=== PATIENT | female | born 1950 | race Caucasian/White ===

== ENCOUNTER → 2017-06-07 | Outpatient (CLI) | payer MEDICARE, MEDICAID ==
[~2017-06-07] MED LIST: ADVAIR HFA115 MCG/21 INH; AMIODARONE HCL100 MG PO; ASPIRIN81 M2 PO; AYR SALINE NASA14 GM TOP; CARDIZEM CD240 MG PO; CLOTRIMAZOLE 1%15 G1 TOP; DUONEB 2.5-0.5 M3 ML INH; ELIQUIS2.5 MG PO; HUMALOG100 UNIT/1 SUBQ; IRON325 PO; LANOXIN 0.120.125 M2 PO; LANTUS100 UNIT/M SUBQ; LASIX 40 MG TAB40 M2 PO; LEVALBUTER1.25 MG/0. INH; LEVOTHYROXIN0.125 M1 PO; LEVOTHYROXINE 0.15MG PO; LISINOPRIL2.5 MG PO; POTASSIUM20 PO; PREMARIN VAGI42.5 G1 TOP; TYLENOL325 MG PO; VASOTEC10 MG PO; VENTOLIN HFA 1818 GM INH; VITAMIN D1000 UNI1 PO; ZETIA10 MG PO
[2017-06-07 15:18] LABS: ALBUMIN 3.4 g/dL (3.4-5.0); CALCIUM 8.9 mg/dL (8.5-10.1); CREATININE 1.6 mg/dL (0.6-1.3); POTASSIUM 4.1 mmol/L (3.5-5.1); TOTAL BILIRUBIN 0.2 mg/dL (<0.1-1.0); TOTAL PROTEIN 8.1 g/dL (6.4-8.2)
== END ==
LOC: M.RAD 14:28
PROVIDERS: Nurse Practitioner
DX: I50.32 Chronic diastolic (congestive) heart failure (principal); I51.7 Cardiomegaly; I48.3 Typical atrial flutter; E03.9 Hypothyroidism, unspecified

== ENCOUNTER → 2017-06-20 | Outpatient (CLI) | payer MEDICARE, MEDICAID ==
[2017-06-20 13:49] LABS: CALCIUM 9.3 mg/dL (8.5-10.1); CREATININE 1.5 mg/dL (0.6-1.3)
== END ==
LOC: M.RAD 13:12
PROVIDERS: Nurse Practitioner
DX: I51.7 Cardiomegaly (principal); I12.9 Hypertensive chronic kidney disease with stage 1 through stage 4 chronic kidney disease, or unspecified chronic kidney disease; E11.22 Type 2 diabetes mellitus with diabetic chronic kidney disease; N18.9 Chronic kidney disease, unspecified; E03.9 Hypothyroidism, unspecified; E78.00 Pure hypercholesterolemia, unspecified

== ENCOUNTER 2018-02-07 16:13 | Inpatient (IN) | payer MEDICARE, MEDICAID ==
[~2018-02-07] VITALS: Ht 152.4 cm; Wt 115.7 kg
[2018-02-07 16:25] VITALS: BP 113/53
[2018-02-07 17:28] LABS: ABSOLUTE EOSINOPHILS 0.1 thou/uL (0.0-0.7); ABSOLUTE LYMPHOCYTES 1.4 thou/uL (0.8-5.3); ABSOLUTE MONOCYTES 0.8 thou/uL (0.0-1.2); ABSOLUTE NEUTROPHILS 6.4 thou/uL (1.6-8.1); BASOPHILS 0.5 %; EOSINOPHILS 1.2 %; HEMATOCRIT 39.5 % (37.0-47.0); HEMOGLOBIN 12.6 gm/dL (12.0-15.0); LYMPHOCYTES 15.7 %; MCH 31.6 pg (26.0-34.0); MCHC 31.8 g/dL (28.0-37.0); MCV 99.5 fL (80.0-100.0); MONOCYTES 8.9 %; MPV 8.2 fl. (7.2-11.1); NUCLEATED RBCS 0 /100WBC; PLATELET COUNT* 283 thou/uL (150-400); POLYS 73.7 %; RBC 3.97 mil/uL (4.20-5.00); RDW-CV 14.6 % (10.5-14.5); WBC 8.7 thou/uL (4.0-11.0)
[2018-02-07 17:46] LABS: APTT 29.1 Seconds (25.0-31.3); PROTIME 10.5 Seconds (9.20-11.50)
[2018-02-07 17:48] LABS: ANION GAP 7 mmol/L (7-16); BUN 47 mg/dL (7-18); CALCIUM 9.9 mg/dL (8.5-10.1); CHLORIDE 96 mmol/L (98-107); CO2 34 mmol/L (21-32); CREATININE 1.8 mg/dL (0.6-1.3); GLUCOSE 121 mg/dL (70-99); POTASSIUM 4.2 mmol/L (3.5-5.1); SODIUM 137 mmol/L (136-145)
[2018-02-07 17:59] LABS: ALBUMIN 3.3 g/dL (3.4-5.0); ALKALINE PHOSPHATASE 109 U/L (46-116); NT-PRO BRAIN NAT PEPTIDE 1408 pg/mL (<300); SGOT 16 U/L (15-37); SGPT 17 U/L (30-65); TOTAL BILIRUBIN 0.2 mg/dL (<0.1-1.0); TOTAL PROTEIN 8.3 g/dL (6.4-8.2); TROPONIN-I LEVEL <0.06 ng/mL (<0.06)
[2018-02-07 20:10] VITALS: BP 122/66
[2018-02-07 20:25] VITALS: BP 99/62
[2018-02-07 20:30] VITALS: BP 99/62
[2018-02-07 22:06] VITALS: BP 97/57
[2018-02-08] VITALS: BP 115/56
[2018-02-08 04:00] VITALS: BP 145/67
[2018-02-08 05:37] LABS: HEMATOCRIT 38.2 % (37.0-47.0); HEMOGLOBIN 11.9 gm/dL (12.0-15.0); MCH 31.4 pg (26.0-34.0); MCHC 31.3 g/dL (28.0-37.0); MCV 100.2 fL (80.0-100.0); MPV 8.1 fl. (7.2-11.1); RBC 3.81 mil/uL (4.20-5.00); WBC 8.6 thou/uL (4.0-11.0)
--- NOTE | 2018-02-08 05:39 | NUR ---
Pt A/O x 4, on O2 2L NC. Pt sleeps only in recliner due to intolerance of sleeping in bed. On ABX therapy and continuous IVF infusion. VSS. C/o BLE pain only upon mobility. No apparent distress noted at this time. Will continue to monitor.
[2018-02-08 05:43] LABS: CALCIUM 9.7 mg/dL (8.5-10.1); MAGNESIUM 2.5 mg/dL (1.8-2.4)
[2018-02-08 05:49] LABS: POTASSIUM 5.6 mmol/L (3.5-5.1)
[2018-02-08 08:00] VITALS: BP 110/75
--- NOTE | 2018-02-08 08:00 | NUR ---
pt sitting up in chair in room, appears alert o x 4, denies chest pain,denies SOB at rest, o2 at 2l per NC, sate 90%m BLE reddened , discolored, dx BLE cellulitis
[2018-02-08 12:28] VITALS: BP 115/78
--- NOTE | 2018-02-08 16:04 | NUR ---
MET WITH PT TO DISCUSS HOME SITUATION/DC PLANNING PT LIVES ALONE. HAS IN HOME CARE GIVERS M-F 9-2 THRU [facility]. SHE IS TRYING TO GET THEM INCREASED. SHE HAS HAD HH WITH [facility] IN PAST AND WOULD LIKE TO USE THEM AGAIN. PT USES FURNITURE TO GET AROUND IN [place]. DENIES HAVING A WALKER BUT WOULD LIKE ONE WITH A SEAT. WILL HAVE TO CHECK ON A WEEKDAY FOR COVERAGE. SHE HAS O2 THRU [facility] AND ELECTRIC W/C. PT CAN STILL DRIVE HERSELF TO APPTS, CG ASSISTS HER INTO THE CAR. PT IS ABLE TO DO SOME ADLS WITH ASSIST. CG DOES COOKING, CLEANING, LAUNDRY, SHOPPING. SON/ALEX IS DPOA, LIVES IN [place] BUT COMING TO VISIT THRU THE 1ST. PT HASN'T BEEN TO SNF AND PREFERS NOT TO GO. WILL FOLLOW
--- NOTE | 2018-02-08 18:10 | NUR ---
pt has sat up in chair most of day, remains alert o x 4, denies chest pain, denies SOB, with activity, on o2 at 2l per nc. CT chest ordered, concern over pulm nodules, Pt became claustraphobic, was unable to complete, BLE reddened DX CELLULITIS, feet warm, ppp faint, were dopplered in ER prior to admission, Vascular surgury has been consulted. Reports dakota pain relief with po lortab
[2018-02-08 20:00] VITALS: BP 109/74
[2018-02-09] VITALS: BP 123/83
[2018-02-09 04:00] VITALS: BP 106/70
[2018-02-09 05:14] LABS: HEMATOCRIT 38.4 % (37.0-47.0); MCH 31.6 pg (26.0-34.0); MCHC 31.3 g/dL (28.0-37.0); MCV 101.1 fL (80.0-100.0); MPV 8.2 fl. (7.2-11.1); RBC 3.79 mil/uL (4.20-5.00); RDW-CV 14.8 % (10.5-14.5)
[2018-02-09 05:23] LABS: CALCIUM 9.3 mg/dL (8.5-10.1); CREATININE 1.8 mg/dL (0.6-1.3); MAGNESIUM 2.5 mg/dL (1.8-2.4); POTASSIUM 4.9 mmol/L (3.5-5.1)
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
[2018-02-09 08:00] VITALS: BP 138/90
--- NOTE | 2018-02-09 11:07 | EKG ---
[place] [address] ELECTROCARDIOGRAM REPORT Name: DENIZ LÓPEZ Room: [address] ADM IN M.R.#: [id number] Admission: 02/07/18 Attend Phys: Parminder Mccann MD Discharge: Date of : 48 Report #: [id number] THIS REPORT FOR: //name// [facility] [place] ED Test Date: 2018-02-07 Test Time: 16:54:03 Pat Name: DENIZ LÓPEZ Department: Room: [facility] Gender: F Relations Liaison: Kelly ALMEIDA : 1950 Requested By: Bekah Billingsley Order Number: [id number] MD: Reagan Adams Measurements Intervals [place] Rate: 121 P: [place]: QRS: 128 QRSD: 131 T: 30 QT: 404 QTc: 574 Interpretive Statements Atrial flutter with 2:1 block RBBB and LPFB Inferior infarct, old possible Baseline wander in lead(s) V1 Compared to ECG 10/31/2016 08:06:08 Atrial flutter persists with more rapid responwe Left posterior fascicular block now present Myocardial infarct finding still present Electronically Signed On 02-09-2018 11:06:49 MORNING CAREGIVER by Reagan Adams [email or web address] <ELECTRONICALLY SIGNED> By: Reagan Adams MD, [facility] 02/09/18 1106 [id number] [id number] Reagan Adams MD, [facility] /EPI
[2018-02-09 11:50] VITALS: BP 128/62
[2018-02-09 15:18] VITALS: BP 108/77
[2018-02-09 20:00] VITALS: BP 141/68
[2018-02-10 04:00] VITALS: BP 128/71
[2018-02-10 05:39] LABS: HEMATOCRIT 36.8 % (37.0-47.0); HEMOGLOBIN 11.4 gm/dL (12.0-15.0); MCH 30.7 pg (26.0-34.0); MCHC 30.8 g/dL (28.0-37.0); MCV 99.7 fL (80.0-100.0); MPV 8.3 fl. (7.2-11.1); RBC 3.69 mil/uL (4.20-5.00); RDW-CV 14.5 % (10.5-14.5); WBC 11.5 thou/uL (4.0-11.0)
[2018-02-10 06:03] LABS: CALCIUM 9.7 mg/dL (8.5-10.1); CREATININE 1.7 mg/dL (0.6-1.3); POTASSIUM 5.1 mmol/L (3.5-5.1)
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
--- NOTE | 2018-02-10 07:45 | NUR ---
ASSUMED CARE OF PT ASSESSED AND DOCUMENTED. PT IS ON CARDIAC MONITER TRACING ST HR 115. PT IS A&O WITH NO C/O PAIN. VSS WNL. PT IS AFEBRILE. SHE IS ON 2L OF O2 WITH NOTED WHEEZING IN ALL LOBES. PT SAT 88 TO 89 ON 02 AND REFUSES TO HAVE IT RAISED. PT'S SPUTUM WAS BLOOD TINGED. PT HAS SWELLING AND CELLULITUS IN BLE'S. SHE IS ANXIOUS AND STATES SHE HAS CLAUSTRAPHOBIA. SHE ALSO DOES NOT LIKE DARK COLORED SCRUBS OR HER CURTAIN CLOSED. BED IS IN LOW POSITION CALL LIGHT IS IN REACH. WM.
[2018-02-10 08:00] VITALS: BP 139/71
--- NOTE | 2018-02-10 10:24 | NUR ---
PT REFUSED ABG STATING THEY HURT TOO BAD AND HER ANXIETY LEVEL IS TOO HIGH
--- NOTE | 2018-02-10 12:02 | NUR ---
MIKY CARDIAC NURSE ASKED THAT PT BE ON LOW SODIUM DIET SO SHE CAN HAVE MS DASH.
[2018-02-10 12:12] VITALS: BP 116/82
--- NOTE | 2018-02-10 13:33 | NUR ---
WOUND NURSE: PATIENT SEEN TO ADDRESS SUPERFICIAL SKIN LESIONS ON THE LEFT CALF. PRESENTS WITH SHALLOW EROSIONS AND PEELING SKIN, WEEPING SEROUS DRAINAGE. THERE IS RUBOR, WARMTH, AND SWELLING. PATIENT RESISTANT TO RECOMMENDED CARE, BUT FINALLY AGREED TO WOUND CARE TO THE AFFECTED LEG. CLEANSED WITH SOAP AND WATER, RINSED WITH WATER, THEN PATTED DRY. APPLIED LOTION TO INTACT SKIN TOES TO KNEE, APPLIED XEROFORM GAUZE UNDER ABD TO SHALLOW EROSIONS IN TH DISTAL CALF AREA, THEN COVERED WITH ABD'S, THEN WRAPPED WITH KERLEX ROLL GAUZE UNDER LOOSE MU WRAP. PATIENT REFUSION ANY COMPRESSION OR ELEVATION IN BED. PATIENT WAS INFORMED OF POTENTIAL CONSEQUENCES OF REFUSAL TO FOLLOW THE PLAN OF CARE. PATIENT ARGUES SHE HAS SEVERE ANXIETY AND CAN'T TOLERATE HAVING LEGS COMPRESSED.
--- NOTE | 2018-02-10 14:26 | NUR ---
Nutrition: Consult received for "pt is diabetic." Diet was changed from CHO controlled to low Na. Labs: Na 135, BG 312, alb 3.3, BUN 52, cr 1.7. Wt is stable at 255#. Pt has leg wounds. Is very anxious and fearful. Altered nutrition-related lab values R/T BG AEB labs above. RD will add a CHO count to the low Na diet. Mild risk.
[2018-02-10 15:42] VITALS: BP 120/58
--- NOTE | 2018-02-10 17:18 | NUR ---
PT HAS SET IN BEDSIDE CHAIR THIS SHIFT. SHE REFUSED WOUND CARE, THIS NURSE AND CHARGE BOTH EDUCATED PT. SHE DID ALLOW WOUND CARE TO TREAT HER L LEG. PT REFUSES ANYTHING FOR ANXIETY. SHE WAS UPSET WITH CARDIO NURSE WHEN SHE EDUCATED PT ON FLUIDS. SON IS AT BEDSIDE.
[2018-02-11 00:44] VITALS: BP 126/66
--- NOTE | 2018-02-11 03:21 | NUR ---
RECIEVED REPORT AND ASSUMED CARE AT 1900. PANEL SEWER IN PLACE. VITAL SIGNS STABLE. ON NC OXYGEN. PT HAS PAIN IN HER LEGS THAT COME AND GO BUT NONE AT THIS TIME, REST HELPS MANAGE PAIN. PT UP WITH STANDBY ASSIST. ASSESSMENT COMPLETED, DISCUSSED PLAN OF CARE, PT UNDERSTANDS. PT SLEEPS IN CHAIR NOT IN BED DUE TO BREATHING. CALL LIGHT WITHIN REACH. HOURLY ROUNDING DONE AND ALL NEEDS MET. NURSING WILL CONTINUE TO MONITOR.
[2018-02-11 04:00] VITALS: BP 122/69
--- NOTE | 2018-02-11 07:15 | NUR ---
ASSUMED CARE OF PT ASSESSED AND DOCUMENTED. PT IS ON CARDIAC MONITER TRACING ST HR 121. SHE IS A&O WITH NO C/O PAIN. SHE CONT ON 3L OF 02 SAT IS 89%. PT REFUSES TO HAVE 02 RAISED. VSS WNL. PT IS AFEBRILE. LUNGS ARE CLEAR. BED IS IN LOW POSITION CALL LIGHT IS IN REACH. WM.
[2018-02-11 08:00] VITALS: BP 125/77
--- NOTE | 2018-02-11 08:23 | CON ---
[address] [address] CONSULTATION Name: FLORENTINO LÓPEZNIE Room: [address] ADM IN M.R.#: [id number] Admission: 02/07/18 Attend Phys: Parminder Mccann MD Discharge: Date of : 48 Report #: [id number] THIS REPORT FOR: //name// CC: Linda Mccann DATE OF SERVICE: 02/09/2018 ATTENDING PHYSICIAN: Tomi Roberts MD REASON FOR EVALUATION: Bilateral lower extremity inflammatory eruption, suspected component of cellulitis. HISTORY OF PRESENT ILLNESS: Chart reviewed, patient examined. This is a 67-year-old who has got known severe COPD, O2 requiring, difficulty getting around, although she has been able; however, over the course of last few days prior to admission, became increasingly difficult with pain associated with the left lower extremity. She has known venous stasis insufficiency with dermatitis. The pain, however, made it unbearable to bear weight and walk and evaluation included a chest x-ray raised question of a pulmonary mass versus local pneumonitis that was notable was not present in 06/2017. Lactic acid was normal. Arterial Dopplers showed evidence of some occlusive disease with monophasic blood flow throughout the left lower extremity, no evidence of deep venous thrombosis. Blood cultures are sterile thus far. Empirically started on antimicrobials with ceftriaxone and vancomycin. ALLERGIES: STATINS, CODEINE, PENICILLIN. MEDICATIONS: Include levalbuterol, hydrocodone, ceftriaxone, amiodarone, ferrous sulfate, ezetimibe, budesonide, levothyroxine, vancomycin, diltiazem, apixaban, cholecalciferol, methylprednisolone, insulin glargine, furosemide. PAST MEDICAL HISTORY: Above-noted diabetes mellitus, O2 requiring COPD, atrial fibrillation, hypertension, asthma, chronic venous stasis insufficiency with dermatitis, morbid obesity. SOCIAL HISTORY: Former smoker. No ethanol, no illicit drug use. FAMILY HISTORY: Noncontributory. REVIEW OF SYSTEMS: Denies any significant gastrointestinal-related complaints; otherwise, unremarkable 10-point review of systems from above. PHYSICAL EXAMINATION: GENERAL: She appears chronically ill, undernourished, is pleasant, cooperative. VITAL SIGNS: Temperature 97.3, pulse 110, respirations 20, [place] [address] CONSULTATION Name: DENIZ LÓPEZ Room: [address]#: [id number] Admission: 02/07/18 Attend Phys: Parminder Mccann MD Discharge: Date of : 49 Report #: [id number] 128/62. SKIN: Warm. Multiple areas of contusion, erythrodermic type eruption, lower extremities below the knees. Superficial ulcer on the lateral aspect of the left lower extremity. HEENT: Extraocular muscles intact, has nasal cannula oxygen in place. NECK: Supple. LUNGS: Diminished overall, scattered crackles, some wheezes. HEART: Regular, tachycardic. I do not appreciate any murmur. ABDOMEN: Obese, soft. No peritoneal signs, no particular tenderness. GENITOURINARY: Deferred. RECTAL: Deferred. LABORATORY DATA: Initial CBC: White count of 8.7, H and H 12.6 and 39.5, platelets of 283. Chest x-ray as described above, a left mid lung mass like opacity measuring 9 cm. Lactic acid of 1.2. Electrolytes: Sodium 137, potassium 4.2, chloride 96, bicarbonate is 34, BUN and creatinine 47 and 1.8, albumin 3.3, total protein of 8.3, estimated GFR of 28. Arterial and venous Dopplers as described above. Blood cultures sterile as above. ASSESSMENT: Bilateral lower extremity inflammatory eruption, certainly has underlying venous stasis insufficiency, dermatitis. There was an increase in pain, in particular on the right there is some breakdown with drainage as well. I think this is likely a secondary infection. We will continue the empiric therapy. Vancomycin should give adequate staph, strep coverage. Secondly, a question of pneumonitis. She is so tenuous to begin with, noted Pulmonary is following. I do not think it is likely she will be able to expectorate sputum. We will discuss with Dr. Jj whether CT imaging of the chest would be helpful. I do not think she would be a high risk candidate for any sort of invasive procedure at this point, see if she does clinically limb elevation is not feasible from her standpoint. Had tried compression in the past, which she did not tolerate can do to improve her level of pain. <ELECTRONICALLY SIGNED> By: Rakesh Frias MD 02/11/18 0823 1214 [id number] Frias MD /nt
[2018-02-11 12:00] VITALS: BP 120/77
[2018-02-11 13:09] LABS: CALCIUM 10.1 mg/dL (8.5-10.1); CREATININE 1.8 mg/dL (0.6-1.3); MAGNESIUM 2.4 mg/dL (1.8-2.4); POTASSIUM 4.5 mmol/L (3.5-5.1)
[2018-02-11 16:00] VITALS: BP 115/74
--- NOTE | 2018-02-11 17:57 | NUR ---
EDUCATION GIVEN ON DEMAND. HOURLY ROUNDING COMPLETE. PT HAS HAD NO C/O PAIN OR DISCOMFORT. CONT TO SIT IN BEDSIDE CHAIR.
[2018-02-11 20:00] VITALS: BP 129/73
[2018-02-12] VITALS (7 sets, daily range): BP systolic 106–139; BP diastolic 62–74
--- NOTE | 2018-02-12 02:01 | NUR ---
ASSUMED CARE OF PATIENT AT 1900. VSS, AFEBRILE. PATIENT IN CHAIR. HIGHLY ANXIOUS AND EMOTIONAL. BLOOD SUGAR AT HS CHECK WAS 79 AND SHE FELT THIS WAS TOO LOW. EDUCATION GIVEN ABOUT NORMAL RANGES. STILL REQUESTING JUICE AND PUDDING. UP TO BSC TO VOID. VERY SHAKY BUT LIKES TO BE INDEPENDENT. PROGRESSING SLOWLY TOWARDS POC GOALS.
[2018-02-12 05:26] LABS: HEMATOCRIT 40.2 % (37.0-47.0); HEMOGLOBIN 12.7 gm/dL (12.0-15.0); MCH 31.1 pg (26.0-34.0); MCHC 31.5 g/dL (28.0-37.0); MCV 98.6 fL (80.0-100.0); MPV 7.9 fl. (7.2-11.1); RBC 4.07 mil/uL (4.20-5.00); RDW-CV 15.1 % (10.5-14.5); WBC 12.3 thou/uL (4.0-11.0)
[2018-02-12 05:57] LABS: CALCIUM 9.8 mg/dL (8.5-10.1); CREATININE 1.8 mg/dL (0.6-1.3); MAGNESIUM 2.5 mg/dL (1.8-2.4); POTASSIUM 5.1 mmol/L (3.5-5.1)
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
--- NOTE | 2018-02-12 18:17 | NUR ---
PT VERY ANXIOUS ABOUT MANY THINGS. PT RELUCTANTLY AGREED TO CT AND WAS GIVEN ATIVAN PER ORDER. PT ABLE TO COMPLETE CT WITH REPEATED REASSURANCES AND ENCOURAGEMENT. PT RESPIRATIONS EVEN AND UNLABORED AT REST, BECOMES SIGNIFICANTLY SOA WITH ACTIVITY. PT REFUSES INCREASE IN O2 ABOVE 2L DESPITE SAT 87-89 MOST OF DAY. PT ABLE TO MAKE NEEDS KNOWN, CALL LIGHT IN REACH.
[2018-02-13] VITALS: BP 109/50
--- NOTE | 2018-02-13 03:05 | NUR ---
PT ASSESSMENT COMPLETE, TRACING ST ON MONITOR. PT IS VERY ANXIOUS BUT REFUSES ANY MEDICATIONS ORDERED FOR ANXIETY. PT EDUCATED ON RELAXATION TECHNIQUES, COMMUNICATES UNDERSTANDING. FALL PRECAUTIONS IN PLACE. HOURLY ROUNDING FOR SAFETY. CLWR.
[2018-02-13 04:59] VITALS: BP 120/71
[2018-02-13 05:03] LABS: HEMATOCRIT 40.5 % (37.0-47.0); HEMOGLOBIN 12.7 gm/dL (12.0-15.0); MCH 31.1 pg (26.0-34.0); MCHC 31.4 g/dL (28.0-37.0); MCV 99.1 fL (80.0-100.0); RBC 4.09 mil/uL (4.20-5.00); RDW-CV 14.6 % (10.5-14.5)
--- NOTE | 2018-02-13 05:06 | NUR ---
PT SLEPT INTERMITTENTLY THIS SHIFT. PT HAS HAD SEVERAL EPISODES OF SEVERE ANXIETY. PT REMAINS ST ON MONITOR. NO OTHER CONCERNS AT THIS TIME. FALL PRECAUTIONS IN PLACE. CLWR.
[2018-02-13 05:51] LABS: CALCIUM 9.6 mg/dL (8.5-10.1); CREATININE 1.8 mg/dL (0.6-1.3); MAGNESIUM 2.7 mg/dL (1.8-2.4); POTASSIUM 5.3 mmol/L (3.5-5.1)
[2018-02-13 07:50] VITALS: BP 107/73
[2018-02-13 11:30] VITALS: BP 123/74
--- NOTE | 2018-02-13 14:44 | 2DMMODE ---
[place] [address] 2 D/M-MODE ECHOCARDIOGRAM Name: DENIZ LÓPEZ Room: [address] IN [facility]#: [id number] Admission: 02/07/18 Attend Phys: Parminder Mccann, Discharge: Date of : 48 Date of Service: 02/13/18 1444 Report #: [id number] THIS REPORT FOR: //name// APPROVED REPORT Study performed: 02/12/2018 16:28:04 EXAM: Comprehensive 2D, Doppler, and color-flow Echocardiogram Patient Location: In-Patient Room #: [facility] Status: routine BSA: 2.12 HR: 120 bpm BP: 116/74 mmHg Rhythm: NSR Other Information Study Quality: Good Indications Dyspnea 2D Dimensions IVSd: 12.67 (7-11mm) LVOT Diam: 20.43 (18-24mm) LVDd: 38.90 mm PWd: 11.49 (7-11mm) Ascending Ao: 29.95 (22-36mm) LVDs: 28.68 (25-40mm) Aortic Root: 33.63 mm Volumes Left Atrial Volume (Systole) LA ESV Index: 34.30 mL/m2 Aortic Valve AoV Peak Nikolay.: 1.30 m/s AO Peak Gr.: 6.71 mmHg LVOT Max P.30 mmHg AO Mean Gr.: 3.99 mmHg LVOT Mean P.64 mmHg LVOT Max V: 1.04 m/s AO V2 VTI: 17.97 cm LVOT Mean V: 0.57 m/s BEBETO (VTI): 2.72 cm2 LVOT V1 VTI: 14.89 cm TDI Lateral E' Nikolay.: 0.13 m/[place] [address] 2 D/M-MODE ECHOCARDIOGRAM Name: DENIZ LÓPEZ Room: [address] IN M.R.#: [id number] Admission: 02/07/18 Attend Phys: Parminder Mccann, Discharge: Date of : 48 Date of Service: 02/13/18 1444 Report #: [id number] PV Peak Nikolay.: 0.83 m/s PV Peak Gr.: 2.74 mmHg Left Ventricle The left ventricle is normal size. There is normal LV segmental wall motion. Mild concentric left ventricular hypertrophy. Left ventricular systolic function is normal. The left ventricular ejection fraction is within the normal range. LVEF is 55-60%. The left ventricular diastolic function is normal. Right Ventricle The right ventricle is normal size. The right ventricular systolic function is normal. Atria Left atrium is mildly dilated. The right atrium size is normal. Aortic Valve The Aortic valve is sclerotic. No aortic regurgitation is present. There is no aortic valvular stenosis. Mitral Valve There is mitral annular calcification. There is no mitral valve regurgitation noted. No evidence of mitral valve stenosis. Tricuspid Valve The tricuspid valve is normal in structure. Trace tricuspid regurgitation. Pulmonic Valve Pulmonic valve is not well visualized. There is no pulmonic valvular regurgitation. Great Vessels The aortic root is normal in size. IVC is normal in size and collapses >50% with inspiration. Pericardium There is no pericardial effusion. <Conclusion> Mild concentric left ventricular hypertrophy. LVEF is 55-60%. [place] [address] 2 D/M-MODE ECHOCARDIOGRAM Name: MARIBELDENIZ Room: [address] IN .R.#: [id number] Admission: 02/07/18 Attend Phys: Parminder Mccann, Discharge: Date of : 48 Date of Service: 02/13/18 1444 Report #: [id number] The Aortic valve is sclerotic. Left atrium is mildly dilated. <ELECTRONICALLY SIGNED> By: Lloyd Christiansen MD, [facility] 02/13/18 1444 1444 1444 Lloyd Christiansen MD, FACC /INF
[2018-02-13 15:22] VITALS: BP 124/65
--- NOTE | 2018-02-13 19:00 | NUR ---
PT AOX4 THIS SHIFT, PT IS IDDM AND TOLERATING DIET AT THIS TIME. PT VERY ANXIOUS AND CAN BE TACHY INTO THE HIGH 200'S THAT IS NON-SUSTAINED. PT HAS HX OF AFIB, BUT HAS BEEN ST THIS SHIFT MAJORITY OF THE TIME HAS BEEN IN THE LOW 100'S TO 120'S. PT IS VERY PARTICULAR AND WANTS THINGS DONE A VERY SPECIFIC WAY. PT HAD DIFFICULT DX AND IS OFF BLOOD THINNERS UNTIL FURTHER NOTICE DUE TO NEED FOR BIOPSY. REDRESSED WOUNDS AND CLEANED THEM WELL. MELISSA AREA IS BLEEDING AND PT USES ESTROGEN CREAM, WILL NOT ALLOW IT TO LEAVE ROOM FOR PHARMACY VERIFICATION AND SHE USED IT AT THE END OF THE SHIFT TO STOP THE BLEEDING WITHOUT THIS RN KNOWING. PT ON 2L O2 PER NC BUT WOULD POSSIBLY BENEFIT FROM MORE O2 AT TIMES OF INCREASED ACTIVITY AND OR ANXIETY BUT REFUSES TO ALLOW RN OR RT TO INCREASE O2. PT STILL NEEDS TO DECIDE IF SHE WANTS TO MOVE ON WITH THE BIOPSY AND CONSENT HAS NOT BEEN SIGNED. PT REQUIRES MORE TIME AND A LOT OF EXPLAINATION. PT HAD BM THIS SHIFT.
[2018-02-13 20:11] VITALS: BP 130/76
[2018-02-14 00:22] VITALS: BP 92/58
[2018-02-14 04:41] VITALS: BP 94/62
--- NOTE | 2018-02-14 05:50 | NUR ---
ASSUMED PT CARE AT 1930, PT IS TRACING ST ON THE MONTIOR, ON 2L NC. PT IS VERY ANXIOUS IN GENERAL. SHE IS VERY CONCERED ABOUT HER UPCOMING PROCEDURE. PT WILL GEET VERY SOA TALKING, WELL WITH ACTIVITY, PT REFUSES TO HAVE HER 02 BUMPED UP FROM 2L. PT HAS CELLULITITS ON HER BILAT LE. WOUNDS WERE CLEANED AND DRESSED BY DAY RN. PT BG WAS ELEVATED AT HS THIS SHIFT, PT REFUSED TO TAKE ANY INSULIN, DESPITE EDUCATION. SHE STATES "IT WILL DROP TOO MUCH" PT IS UP WITH ONE TO THE BSC. PT STATES SHE MUST STAY SITTING IN HER RECLINER, LAYING DOWN IN THE BED GIVES HER ANXIETY. HOURLY ROUNDING COMPLETED FOR PT SAFETY.
[2018-02-14 06:09] LABS: CALCIUM 9.6 mg/dL (8.5-10.1); CREATININE 1.9 mg/dL (0.6-1.3); MAGNESIUM 2.5 mg/dL (1.8-2.4); POTASSIUM 4.6 mmol/L (3.5-5.1)
[2018-02-14 08:00] VITALS: BP 105/75
[2018-02-14 12:00] VITALS: BP 110/66
--- NOTE | 2018-02-14 15:18 | NUR ---
Pt anxious regarding health. Plan for mass biopsy on Saturday. Yves from [facility] here to see Pt, [facility] aware that Pt will need HH at [facility]. Pt requestin a RW at [facility], if she qualifies. Following.
[2018-02-14 16:00] VITALS: BP 122/68
[2018-02-14 20:20] VITALS: BP 117/64
[2018-02-15] VITALS: BP 150/80
[2018-02-15 04:00] VITALS: BP 125/82
[2018-02-15 05:24] LABS: HEMATOCRIT 39.4 % (37.0-47.0); HEMOGLOBIN 12.8 gm/dL (12.0-15.0); MCH 31.9 pg (26.0-34.0); MCHC 32.6 g/dL (28.0-37.0); MPV 8.6 fl. (7.2-11.1); RBC 4.02 mil/uL (4.20-5.00); RDW-CV 14.5 % (10.5-14.5); WBC 10.6 thou/uL (4.0-11.0)
--- NOTE | 2018-02-15 05:38 | NUR ---
VSS. LLE DRESSING CHANGED, THOUGH OUTER MU WRAP WAS REMOVED PER PT REQUEST. PT STATES SHE IS CLAUSTROPHOBIC AND CANNOT TOLERATE ANYTHING CONSTRICTING ON HER LEGS, SHE STATED "I HAVEN'T WORN PANTS SINCE THE YEAR 1999 AND I HAVEN'T HAD SOCKS OR SHOES ON IN THREE OR FOUR YEARS. I JUST WEAR NIGHT GOWNS AT HOME." PT IS HIGH ANXIETY BUT REFUSES ANY PHARMACOLOGICAL INTERVENTION. PT C/O LEFT CHEST AND BLE PAIN X1, PRN TYLENOL GIVEN ORDERED WITH PARTIAL RELIEF WHICH PT STATED WAS ADEQUATE. TO BSC X2 WITH SBA ONLY, BSC MUST BE CLOSE ENOUGH TO CHAIR TO REQUIRE ONLY PIVOT PT STATES SHE CAN NOT WALK FURTHER. PT ALSO REFUSES TO LIE DOWN DUE TO ANXIETY, IN RECLINER FOR WAKING AND SLEEPING HOURS. CALL LIGHT WITHIN REACH.
[2018-02-15 05:49] LABS: CALCIUM 9.8 mg/dL (8.5-10.1); CREATININE 1.7 mg/dL (0.6-1.3); MAGNESIUM 2.7 mg/dL (1.8-2.4); POTASSIUM 4.9 mmol/L (3.5-5.1)
[2018-02-15 08:00] VITALS: BP 131/74
[2018-02-15 11:41] VITALS: BP 124/74
[2018-02-15 16:01] VITALS: BP 111/73
--- NOTE | 2018-02-15 19:45 | NUR ---
I ASSUMED CARE OF THE PATIENT AT 0700. SHE IS ALERT AND ORIENTED X4 AND IS UP WITH SBA X1-2. HOURLY ROUNDING WAS COMPLETED AND PATIENT NEEDS WERE MET. PAIN IS DENIED. PATIENT IS VERY TEARFUL AND AGRESSIVE. WE DID LOTS OF EDUCATION ON DIET AND MENU OPTIONS WELL WOUND CARE. WE DISCUSSED THE PROCEDURE ON SATURDAY. DAUGHTER IN LAW WAS AT THE BEDSIDE FOR PART OF THE DAY. PATIENT IS IN THE CHAIR AND WILL ONLY TRANSFER TO THE [facility] WITH HELP. WILL CONTINUE TO MONITOR
[2018-02-15 20:08] VITALS: BP 118/70
[2018-02-16] VITALS: BP 108/71
[2018-02-16 04:00] VITALS: BP 104/66
--- NOTE | 2018-02-16 07:31 | NUR ---
Pt up in recliner overnight per request. States she does not use beds and sleeps in chair or recliner at home. VSS. HR 110s, appears to be in Atrial Flutter per monitor. Calls with needs appropriately. Will continue to monitor.
[2018-02-16 08:00] VITALS: BP 99/70
[2018-02-16 11:40] VITALS: BP 125/72
[2018-02-16 15:50] VITALS: BP 124/69
--- NOTE | 2018-02-16 18:07 | NUR ---
PT CARE ASSUMED AFTER REPORT. ASSESSMENT COMPLETE. AFLUTTER ON MONITOR. O2 2L NC PT UP TO BSC WITH STB ASSIST. PT REPORTS CONSIPATION. PRN BISCODYL PO GIVEN. PT HAD 2 SMALL STOOLS. APPEARS HARD AND ARE SMALL ROUND BALLS. PT WITH MANY COMPLAINTS R/T CARES AND STAFF MEMBERS. MADE DEMEANING REMARK TO THIS RN. PT EDUCATED ON CARES, WHY THEY ARE NEEDED AND HER RIGHT TO REFUSE. PT VERBALIZED UNDERSTANDING AND CONTINUED TO CHOOSE HER CARES. DENIES PAIN. SLOWLY PROGRESSING TOWARDS GOALS.
[2018-02-16 20:40] VITALS: BP 116/74
[2018-02-17] VITALS (15 sets, daily range): BP systolic 92–120; BP diastolic 49–81
--- NOTE | 2018-02-17 02:53 | NUR ---
RECIEVED REPORT AND ASSUMED CARE AT 1950. JUMPBASTING COLLAR BASTER IN PLACE. VITAL SIGNS STABLE. PT UP WITH STANDBY ASSIST. DENIED ANY PAIN AT THIS TIME. ASSESSMENT COMPLETED, DISCUSSED PLAN OF CARE, PT UNDERSTANDS. PT SLEEPS IN CHAIR, STATES THAT SHE CAN'T SLEEP LAYING DOWN. CALL LIGHT WITHIN REACH. FALL PRECAUTIONS IN PLACE. HOURLY ROUNDING COMPLETED AND ALL NEEDS MET. PT NPO AT MIDNIGHT. NURSING WILL CONTINUE TO MONITOR.
[2018-02-17 05:29] LABS: URINE BILIRUBIN NEGATIVE (Negative); URINE BLOOD TRACE (Negative); URINE CLARITY CLEAR; URINE COLOR YELLOW; URINE GLUCOSE-RANDOM NEGATIVE (Negative); URINE KETONES NEGATIVE (Negative); URINE LEUKOCYTES-REFLEX NEGATIVE (Negative); URINE NITRITE-REFLEX NEGATIVE (Negative); URINE PROTEIN NEGATIVE (Negative); URINE SPECIFIC GRAVITY 1.015 (1.005-1.030); URINE UROBILINOGEN 0.2 E.U./dl (0.2-1.0)
--- NOTE | 2018-02-17 11:47 | NUR ---
ATTEMPTED OT EVALUATION AT 0935, NURSING STATES PT. IS NOT AVAILABLE DUE TO BEING AT LUNG BIOPSY. WILL ATTEMPT AT ANOTHER TIME.
--- NOTE | 2018-02-17 16:57 | NUR ---
RECEIVED REPORT AND ASSUMED CARE AT 0700. VSS. CARDIAC MONITORING IN PLACE. PT REPORTED PAIN, GENERALIZED. PRN MEDICATION OFFERED AND REFUSED BY PATIENT. PT REFUSING AM MEDICATION. PT WENT FOR LUNG BX THIS MORNING. PT UP SBA TO BSC, ON 2L NC. RECLINER LOCKED, PT REFUSING TO BE IN BED. CALL LIGHT WITHIN REACH. HOURLY ROUNDING COMPLETED AND ALL NEEDS MET. WILL CONTINUE TO MONITOR
--- NOTE | 2018-02-17 20:00 | NUR ---
RECEIVED REPORT AND ASSUMED CARE OF PT. PT SITTING UP IN CHAIR AT BEDSIDE. WITH LEGS DEPENDENT, SLEEPING. ASSESSMENT COMPLETED. O2 ON AT 2L/NC, NO SOB NOTED. AMBROCIO LOWER LEGS RED AND EDEMATOUS, FEET CYANOTIC. REFUSES TO ELEVATE. DRSG TO LT LEG LOOSE. DRSG TO LT CHEST AREA DRY AND INTACT WITH OPSITE. TELEMETRY ON SHOWING ST WITH 1ST AVB AND BBB. WILL CONT TO MONITOR AND ASSIST NEEDED.
[2018-02-18 04:04] VITALS: BP 114/78
--- NOTE | 2018-02-18 06:21 | NUR ---
REMAINED SITTING UP IN CHAIR ENTIRE NIGHT WITH LEGS DEPENDENT. REFUSED LEGS TO BE ELEVATED. VOIDING PER BSC, CONT TO HAVE PROBLEMS WITH CONSTIPATION. ENCOURAGED PT TO BEAR DOWN AND WAS ABLE TO EXPELL SEVERAL LG HARD STOOLS. NO DRSG TO LT LEG, ASKING TO LEAVE IT OFF BECAUSE IT WAS TOO HOT AND CLOSED IN FEELING. TELEMETRY CONT TO SHOW ST WITH BBB. NO CHANGE IN ASSESSMENT. ACHIEVED HS GOALS OF REST AND SAFETY. HOURLY ROUNDING OBSERVED.
[2018-02-18 10:38] LABS: HEMATOCRIT 45.7 % (37.0-47.0); HEMOGLOBIN 14.1 gm/dL (12.0-15.0); MCH 30.6 pg (26.0-34.0); MCV 98.7 fL (80.0-100.0); MPV 8.9 fl. (7.2-11.1); NUCLEATED RBCS 0 /100WBC; PLATELET COUNT* 305 thou/uL (150-400); RBC 4.63 mil/uL (4.20-5.00); RDW-CV 14.4 % (10.5-14.5); WBC 21.5 thou/uL (4.0-11.0)
[2018-02-18 10:50] LABS: CREATININE 1.7 mg/dL (0.6-1.3); POTASSIUM 5.4 mmol/L (3.5-5.1)
--- NOTE | 2018-02-18 11:16 | NUR ---
MINING CAPTAIN INFORMED THAT PATIENT IS NOW IN AGREEMENT WITH D/C TO [facility], AND PATIENT IN AGREEMENT WITH EITHER [facility], OR [facility]. D/C GRINDING OPERATOR CONTACTED CYNDI WITH [facility] ADMISSIONS, AND NATHALIA WITH [facility] ADMISSIONS AND BOTH FACILITIES INFORM THAT THEY HAVE BEDS AVAILABLE. D/C GRINDING OPERATOR FAXED REFERRAL TO BOTH FACILITIES, AND INFORMED THEM THAT THE PATIENT IS NOT READY TO D/C TODAY BUT MAY BE READY TO D/C TOMORROW. CM WILL REMAIN AVAILABLE TO ASSIST AND FOLLOW NEEDED.
[2018-02-18 11:20] VITALS: BP 116/79
[2018-02-18 11:24] LABS: ABSOLUTE LYMPHOCYTES 2.4 thou/uL (0.8-5.3); ABSOLUTE MONOCYTES 1.7 thou/uL (0.0-1.2); ABSOLUTE NEUTROPHILS 17.4 thou/uL (1.6-8.1); PLATELET ESTIMATE ADEQUATE
[2018-02-18 11:26] LABS: TOXIC GRANULATION 1+
[2018-02-18 12:00] VITALS: BP 96/52
--- NOTE | 2018-02-18 12:58 | NUR ---
PT OFF UNIT FOR STRESS TEST AT THIS TIME. PT LEFT WITH STAFF IN WC. NO CONCERNS AT THIS TIME
[2018-02-18 16:49] VITALS: BP 93/68
--- NOTE | 2018-02-18 18:13 | NUR ---
PT VSS WITH ST WITH BBB AND 1DEGREE AV BLOCK ON THE MONITOR THIS SHIFT. PT HAS INCREASED ANXIETY WITH MOST TASKS. PT STARTED THE SHIFT VERY CONSITPATED AND WITH COMPLAINTS OF ABD DISCOMFORT. PT WAS REFUSING VS AND ALL MEDICATIONS AT THAT TIME, HOWEVER THE PT WAS ABLE TO PASS A LOT OF FIRM FORMED STOOL FOLLOWED BY A LARGE AMOUNT OF LOOSE STOOLS. PT WENT FOR KUB, RESULTS DID NOT INDICATE NEED FOR FURTHER INTERVENTION. PT RELAXED AND FELL ASLEEP FOR MORE THAN ONE HOUR AFTER KUB. PT REPORTED FEELING MUCH BETTER AFTER STOOL WAS PASSED. PT NOT PROVIDED WITH ANY INSULIN THIS SHIFT HER BLOOD SUGAR RESULTS WERE ON THE LOWER AND PT REFUSED ANY INSULIN. PT BIOPSY DRESSING CDI THIS SHIFT. DR SLADE CAME TO SEE THE PT AND DISCUSSED FOLLOW UP CARE AND CM WORKING WITH SNF PLACEMENT THIS SHIFT. PT HAD POTASSIUM HELD THIS AM FOR INCREASED POTASSIUM LAB RESULT. PT TOLERATING DIET AND O2 AT 2L PER NC. PT STILL NON COMPLIANT WITH FALL PXN AND REFUSES TO ALLOW TELECOMMUNICATIONS SALES REPRESENTATIVE TO ASSIST WITH AMBULATION NEEDS. PT EDUCATED MULTIPLE TIMES REGARDING SAFETY PROTOCOLS AND PT REFUSES TO CALL OUT TO TRANSFER TO [facility] BUT DOES CALL OUT TO GET BACK TO CHAIR, PT REFUSES CHAIR ALARM THIS SHIFT. PT REFUSING WOUND DRESSINGS OR PIX THIS SHIFT, WILL ATTEMPT TO GET PIX TAKEN PRIOR TO END OF SHIFT FOR TOMORROW'S DISCHARGE. PT FAMILY HERE AT BEDSIDE TO DISCUSS PLAN OF CARE WITH TEAM AND AGREEABLE TO PLAN AT THIS TIME. WILL CONTINUE TO ASSESS AND MONITOR.
[2018-02-18 19:20] VITALS: BP 112/53
--- NOTE | 2018-02-18 22:30 | NUR ---
[facility] PT COMPLIANT WITH ASSESSMENT. PT DENIES ANY PAIN, SOA,N/V/D. PT TOOK MEDICATIONS WITHOUT ISSUE AND IS CURRENTLY RESTING COMFORTABLY IN RECLINER CHAIR. PT IS ANXIOUS ABOUT GOING TO SNF. PT REASSURED. VSS. PT TRACING ST WITH 1ST DEGREE BLOCK ON MONITOR. PT DENIES ANY FURTHER NEEDS. HOURLY ROUNDING FOR SAFETY. PT REEDUCATED ON USE OF ALBIN LIGHT AND FALL PRECAUTIONS, VOICES UNDERSTANDING. CLWR.
[2018-02-19] VITALS: BP 107/53
[2018-02-19 04:00] VITALS: BP 93/53
[2018-02-19 05:37] LABS: ABSOLUTE BASOPHILS 0.1 thou/uL (0.0-0.2); ABSOLUTE LYMPHOCYTES 1.8 thou/uL (0.8-5.3); ABSOLUTE MONOCYTES 1.2 thou/uL (0.0-1.2); ABSOLUTE NEUTROPHILS 15.8 thou/uL (1.6-8.1); BASOPHILS 0.3 %; HEMATOCRIT 42.1 % (37.0-47.0); HEMOGLOBIN 13.1 gm/dL (12.0-15.0); LYMPHOCYTES 9.3 %; MCH 30.8 pg (26.0-34.0); MCHC 31.2 g/dL (28.0-37.0); MCV 98.7 fL (80.0-100.0); MONOCYTES 6.5 %; MPV 9.1 fl. (7.2-11.1); NUCLEATED RBCS 0 /100WBC; PLATELET COUNT* 300 thou/uL (150-400); POLYS 83.9 %; RBC 4.26 mil/uL (4.20-5.00); RDW-CV 14.4 % (10.5-14.5); WBC 18.8 thou/uL (4.0-11.0)
--- NOTE | 2018-02-19 05:39 | NUR ---
PT HAS SLEPT FOR NOST OF THIS SHIFT. AT APPROXIMATELY 0315 PT BECAME SHAKY. BS CHECKED AND FOUND TO BE 67. ORANGE JUICE AND PUDDING GIVEN WITH GOOD RESULTS. HOURLY ROUNDING FOR SAFETY.
[2018-02-19 05:56] LABS: ALBUMIN 2.7 g/dL (3.4-5.0); CALCIUM 9.8 mg/dL (8.5-10.1); CREATININE 2.1 mg/dL (0.6-1.3); POTASSIUM 5.3 mmol/L (3.5-5.1); TOTAL BILIRUBIN 0.4 mg/dL (<0.1-1.0); TOTAL PROTEIN 6.9 g/dL (6.4-8.2)
--- NOTE | 2018-02-19 08:10 | NUR ---
RECEIVED REPORT. ASSUMED CARE OF PT AT 0730. VSS. CARDIAC MONITORING IN PLACE ST. AM ASSESSMENT AND VITALS COMPLETED CHARTED. PT ALERT AND ORIENTED. PT ON RA. IV SALINE LOCKED. PT SITTING UP IN RECLINER CHAIR. LEGS NOT ELEVATED. NOTED REDNESS/DISCOLORATION/EDEMA TO BLE. PT DENIES ANY PAIN THIS AM. DRESSING TO LEFT CHEST FROM BIOPSY C/D/I. PT INFORMED OF PLAN OF CARE. PT COMMUNICATES UNDERSTANDING. CALL LIGHT IS WITHIN REACH. WILL CONINUE TO MONITOR FOR DURATION OF SHIFT.
[2018-02-19 08:21] VITALS: BP 112/58
--- NOTE | 2018-02-19 08:40 | CON ---
[address] [address] CONSULTATION Name: MARIBELDENIZ Room: [address] IN M.R.#: [id number] Admission: 02/07/18 Attend Phys: Parminder Mccann MD Discharge: Date of : 48 Report #: [id number] THIS REPORT FOR: //name// CC: Linda Mccann DATE OF SERVICE: 02/18/2018 REASON FOR CONSULTATION: Lung mass. HISTORY OF PRESENT ILLNESS: This is a 67-year-old female who had COPD on home oxygen, who was admitted on 02/07/2018. She was initially admitted because of worsening exacerbation of congestive heart failure with weight gain. She was started initially on IV antibiotics. During her hospitalization, she had a CT chest on 02/12/2018, which showed that large mass measuring up to 9.4 cm in the upper left mediastinum, may have risen from outside the lung itself as it is related to the mediastinum and anterior chest wall. A small mass also has been seen in the right middle lobe, which is unchanged from 2017. The patient has COPD and she is on home oxygen. She walks less than 20 feet before she has to stop. She spends most of her day sitting in a chair or on the couch. The patient also during CT scan was extremely anxious. She is not interested in repeating and obtaining any further imaging. REVIEW OF SYSTEMS: All systems were reviewed. It was negative except the above. PAST MEDICAL HISTORY: Significant for COPD, AFib, bilateral lower extremity venous stasis, CHF, chronic kidney disease, diabetes mellitus, morbid obesity. MEDICATIONS: Per admission list. ALLERGIES: SHE IS ALLERGIC TO STATINS AND CODEINE. SOCIAL HISTORY: She is a heavy smoker. She smokes between 2-3 packs for 40 years. No alcohol abuse or drug abuse. FAMILY HISTORY: Noncontributory. PHYSICAL EXAMINATION: VITAL SIGNS: Today, temperature 36.7, pulse is 114, respirations 20, blood pressure is 114/78, temperature is 93% on 2 liters. GENERAL: The patient was sitting in chair. LUNGS: Decreased breathing sounds bilaterally. HEART: With regular regularity. S1, S2 within normal limits. ABDOMEN: Soft, nontender, nondistended, bowel sounds positive. EXTREMITIES: The patient has extensive venous stasis [place] [address] CONSULTATION Name: DENIZ LÓPEZ Room: [address]#: [id number] Admission: 02/07/18 Attend Phys: Parminder Mccann MD Discharge: Date of : 48 Report #: [id number] lower extremities. LABORATORY DATA: Today, WBC 21.5, hemoglobin 14.1, platelets 305. Potassium 5.4, creatinine 1.7. IMAGING: As mentioned above. ASSESSMENT AND PLAN: A 67-year-old female who has a history of chronic obstructive pulmonary disease, on home oxygen. She has ECOG Performance Status of between 2 and 3. She had a large mass in the chest, which was biopsied. She has been a heavy smoker. RECOMMENDATIONS: 1. Definitely I would like to wait for pathology to decide whether this is a primary lung cancer versus any other type of malignancy. 2. The patient is very anxious. Because of her COPD she is not able to lie flat, which is going to be a challenge in terms of her PET/CT scan as an outpatient and also her treatments. At this point, I would like to wait for her pathology to determine treatment options including best supportive care. <ELECTRONICALLY SIGNED> By: Agueda Ewing MD 02/19/18 0840 1109 [id number] Ewing MD /nt
--- NOTE | 2018-02-19 10:13 | NUR ---
[facility] can accept Pt for skilled at dc. Updated nurse and Dr, awaiting dc orders.
[2018-02-19 12:19] VITALS: BP 100/63
[2018-02-19] MEDS ORDERED: LASIX 40 MG TAB40 M1 PO (13:19)
[2018-02-19] MEDS ORDERED: MIRALAX17 GM PO (13:19)
[2018-02-19] MEDS ORDERED: PROTONIX40 M1 PO (13:19)
[2018-02-19] MEDS ORDERED: LANTUS100 UNIT/M SUBQ (13:20)
[2018-02-19] MEDS ORDERED: HUMALOG100 UNIT/1 SUBQ ×2 (13:20→13:22)
[2018-02-19] MEDS ORDERED: PREDNISONE 20 M20 MG PO (13:22)
--- NOTE | 2018-02-19 15:20 | NUR ---
DISCHARGE ORDERS RECEIVED AND PREPARED. IV AND CARDIAC MONTIORING DISCONTINUED. COPY OF CHART AND DISCAHRGE ORDERS IN ENVELOPE. WOUND PICTURES AND WOUND CARE PROVIDED PRIOR TO DISCHARGE. CALLED REPORT TO [facility]. AWAITING W/C SELENA LEÓN.
--- NOTE | 2018-02-20 10:08 | PATH ---
[address] [address] PATHOLOGY RPT PROCEDURE Name: MANUELA BLACKMAN Room: [address] IN M.R.#: [id number] Admission: 02/07/18 Date of : 48 Discharge: 02/19/18 Report #: [id number] Path Case #: [id number] [facility] Accession Number: [id number] . 01 Material submitted: . LEFT LUNG MASS . 01 Clinical history: . 7.5 x 9.[address]-guided left lung mass . 02 Diagnosis: Left lung mass, CT-guided biopsy: - Scant fragments of keratin/parakeratotic material and predominantly abundant necrotic debris, suggestive of but not diagnostic of squamous cell carcinoma. See comment. (ARIAN:jareth; 02/19/2018) JANY/02/19/2018 . 02 Comment: No intact viable epithelium is present. A properly controlled P40 immunohistochemical stain performed on A1 is negative. Properly controlled GMS and Kinyoun stains also performed on A1 are negative for fungal and mycobacterial elements. . Reviewed with Dr. Mando Melissa who agrees with the diagnosis. Discussed with Dr. Dorantes at approximately 1430 on 02/19/2018. . (SKM:jareth; 02/19/2018) . 02 Electronically signed: . Ammon Cuellar MD, Pathologist NPI- [id number] . 01 Gross description: . Received in formalin labeled "Manuela Blackman, left lung mass," are multiple fragments of needle cores of bautista soft tissue measuring 0.6 x 0.2 x 0.1 cm in aggregate dimensions. The specimen is filtered and entirely submitted in cassette A1. (TSD; 02/17/2018) TOB/TOB . 02 Pathologist provided ICD-10: J98.4 . 02 CPT . 567641, P07046, 836856, 635476 Specimen Comment: A courtesy copy of this report has been sent to Specimen Comment: [phone], , , [place] [address] PATHOLOGY RPT PROCEDURE Name: MANUELA BLACKMAN Room: [address] IN M.R.#: [id number] Admission: 02/07/18 Date of : 48 Discharge: 02/19/18 Report #: [id number] Path Case #: [id number] Specimen Comment: Report sent to ,DR HERNANDEZ / DR KC Specimen Comment: DR DORANTES Specimen Comment: A duplicate report has been generated due to demographic updates. Performed at: [address], [place] [id number] MD Brennen Kohler MD Phone: [phone] Performed at: 02 [facility] [address], [place], [place] [id number] MD Ammon Cuellar MD Phone: [phone]
== END 2018-02-19 15:41 | DRG 871 ==
LOC: M.ERS 16:13 → M.TBA-ER 17:42 → M.2W 17:42
PROVIDERS: Family Medicine; Internal Medicine; Nurse Practitioner Family; Specialist; ADMIT Internal Medicine
PROC: 0BBL3ZX Excision of Left Lung, Percutaneous Approach, Diagnostic (ICD-10-PCS; principal; 2018-02-17)
DX: A41.9 Sepsis, unspecified organism (principal); I50.33 Acute on chronic diastolic (congestive) heart failure; J15.6 Pneumonia due to other Gram-negative bacteria; J96.21 Acute and chronic respiratory failure with hypoxia; J98.59 Other diseases of mediastinum, not elsewhere classified; L03.116 Cellulitis of left lower limb; L03.115 Cellulitis of right lower limb; J44.1 Chronic obstructive pulmonary disease with (acute) exacerbation; N18.4 Chronic kidney disease, stage 4 (severe); Z68.42 Body mass index [BMI] 45.0-49.9, adult; I13.0 Hypertensive heart and chronic kidney disease with heart failure and stage 1 through stage 4 chronic kidney disease, or unspecified chronic kidney disease; E78.00 Pure hypercholesterolemia, unspecified; E11.22 Type 2 diabetes mellitus with diabetic chronic kidney disease; J45.909 Unspecified asthma, uncomplicated; E66.01 Morbid (severe) obesity due to excess calories; I25.10 Atherosclerotic heart disease of native coronary artery without angina pectoris; G47.33 Obstructive sleep apnea (adult) (pediatric); E78.5 Hyperlipidemia, unspecified; E11.40 Type 2 diabetes mellitus with diabetic neuropathy, unspecified; I87.2 Venous insufficiency (chronic) (peripheral); L30.9 Dermatitis, unspecified; I48.0 Paroxysmal atrial fibrillation; R91.1 Solitary pulmonary nodule; E11.65 Type 2 diabetes mellitus with hyperglycemia; E87.70 Fluid overload, unspecified; K59.00 Constipation, unspecified; Z88.6 Allergy status to analgesic agent; Z88.0 Allergy status to penicillin; Z87.891 Personal history of nicotine dependence

== ENCOUNTER 2018-03-08 14:04 | Inpatient (IN) | payer MEDICARE, MEDICAID ==
[2018-03-08] VITALS (14 sets, daily range): BP systolic 95–140; BP diastolic 49–93
[~2018-03-08] VITALS: Ht 157.5 cm; Wt 124.5 kg
[~2018-03-08 14:04] MED LIST changes: +LASIX 40 MG TAB40 M1 PO; +MIRALAX17 GM PO; +PREDNISONE 20 M20 MG PO; +PROTONIX40 M1 PO
[2018-03-08 14:29] LABS: HEMATOCRIT 37.4 % (37.0-47.0); HEMOGLOBIN 11.9 gm/dL (12.0-15.0); MCH 31.1 pg (26.0-34.0); MCHC 31.8 g/dL (28.0-37.0); MCV 97.7 fL (80.0-100.0); MPV 7.7 fl. (7.2-11.1); NUCLEATED RBCS 0 /100WBC; PLATELET COUNT* 329 thou/uL (150-400); RBC 3.83 mil/uL (4.20-5.00); RDW-CV 14.3 % (10.5-14.5); WBC 9.7 thou/uL (4.0-11.0)
[2018-03-08 14:40] LABS: APTT 29.6 Seconds (25.0-31.3); PROTIME 10.6 Seconds (9.20-11.50)
[2018-03-08 14:41] LABS: ANION GAP < 0 mmol/L (7-16); BUN 60 mg/dL (7-18); CALCIUM 10.2 mg/dL (8.5-10.1); CHLORIDE 90 mmol/L (98-107); CO2 37 mmol/L (21-32); CREATININE 1.9 mg/dL (0.6-1.3); GLUCOSE 159 mg/dL (70-99); POTASSIUM 5.8 mmol/L (3.5-5.1); SODIUM 126 mmol/L (136-145)
[2018-03-08 14:47] LABS: ABSOLUTE LYMPHOCYTES 1.4 thou/uL (0.8-5.3); ABSOLUTE MONOCYTES 0.5 thou/uL (0.0-1.2); ABSOLUTE NEUTROPHILS 7.9 thou/uL (1.6-8.1); ATYPICAL LYMPHS 2 %; PLATELET ESTIMATE ADEQUATE
[2018-03-08 14:51] LABS: ALKALINE PHOSPHATASE 133 U/L (46-116); LIPASE 111 U/L (73-393); MAGNESIUM 2.5 mg/dL (1.8-2.4); NT-PRO BRAIN NAT PEPTIDE 1476 pg/mL (<300); SGOT 25 U/L (15-37); SGPT 62 U/L (30-65); TOTAL BILIRUBIN 0.2 mg/dL (<0.1-1.0); TOTAL PROTEIN 7.9 g/dL (6.4-8.2); TROPONIN-I LEVEL <0.06 ng/mL (<0.06)
--- NOTE | 2018-03-08 19:00 | NUR ---
PT ADMITTED TO ROOM ICU 1 VIA CART FROM THE ED. PT IS ON THE BIPAP. VSS AT THIS TIME. WILL PLACE THE BEAR HUGGER ON PATIENT. NEELY INSERTED. 2ND IV INSERTED INTO RIGHT UPPER ARM.
[2018-03-08 20:44] LABS: BE 1.9 mmol/L (-2 to +3); PO2 103.9 mmHg (75.0-100.0)
[2018-03-08 20:46] LABS: PCO2 98.9 mmHg (35.0-45.0); pH 7.146 (7.340-7.450)
[2018-03-08 22:08] LABS: BE 2.2 mmol/L (-2 to +3); PO2 80.8 mmHg (75.0-100.0)
[2018-03-08 22:11] LABS: PCO2 110.5 mmHg (35.0-45.0); pH 7.114 (7.340-7.450)
--- NOTE | 2018-03-08 23:12 | NUR ---
DR. RICK NOTIFIED OF CRITICAL RESULTS OF ABG*2, ORDERS RECEIEVED. FAMILY AT BEDSIDE. SON, DPOA, STATES THAT IF INTUBATION IS NEEDED HE WOULD LIKE FOR IT TO BE PERFORMED.
[2018-03-09] VITALS (47 sets, daily range): BP systolic 94–198; BP diastolic 37–132
[2018-03-09 00:18] LABS: URINE BILIRUBIN NEGATIVE (Negative); URINE BLOOD 1+ (Negative); URINE CLARITY CLEAR; URINE COLOR YELLOW; URINE GLUCOSE-RANDOM NEGATIVE (Negative); URINE KETONES NEGATIVE (Negative); URINE LEUKOCYTES-REFLEX 1+ (Negative); URINE NITRITE-REFLEX NEGATIVE (Negative); URINE PROTEIN NEGATIVE (Negative); URINE SPECIFIC GRAVITY 1.025 (1.005-1.030); URINE UROBILINOGEN 0.2 E.U./dl (0.2-1.0)
--- NOTE | 2018-03-09 00:47 | NUR ---
PO EVENING MEDS NOT ADMINISTERED DUE TO PATIENT BEING INCREASINGLY DEPENDENT ON BIPAP.
[2018-03-09 00:54] LABS: BACTERIA-REFLEX >30 Many /HPF (None Seen); CASTS None Seen /LPF (None Seen); CRYSTALS None Seen /LPF (None Seen); MUCUS 0-3 Light strn/LPF (None Seen); SQUAMOUS 0-3 Few /LPF (0-3); URINE WBC-REFLEX >25 Many /HPF (0-5); WBC CLUMPS Few (None Seen)
[2018-03-09 04:16] LABS: BE 2.8 mmol/L (-2 to +3); PO2 99.4 mmHg (75.0-100.0)
[2018-03-09 04:18] LABS: pH 7.249 (7.340-7.450)
[2018-03-09 04:19] LABS: PCO2 74.6 mmHg (35.0-45.0)
[2018-03-09 04:27] LABS: HEMATOCRIT 34.8 % (37.0-47.0); HEMOGLOBIN 11.1 gm/dL (12.0-15.0); MCH 31.3 pg (26.0-34.0); MCHC 31.8 g/dL (28.0-37.0); MCV 98.5 fL (80.0-100.0); MPV 7.6 fl. (7.2-11.1); RBC 3.54 mil/uL (4.20-5.00); RDW-CV 14.3 % (10.5-14.5); WBC 7.9 thou/uL (4.0-11.0)
[2018-03-09 04:32] LABS: ANION GAP < 0 mmol/L (7-16); BUN 69 mg/dL (7-18); CALCIUM 9.7 mg/dL (8.5-10.1); CHLORIDE 93 mmol/L (98-107); CO2 36 mmol/L (21-32); CREATININE 2.2 mg/dL (0.6-1.3); GLUCOSE 183 mg/dL (70-99); MAGNESIUM 2.2 mg/dL (1.8-2.4); PHOSPHORUS* 5.6 mg/dL (2.5-4.9); SODIUM 128 mmol/L (136-145)
[2018-03-09 05:15] LABS: POTASSIUM 6.3 mmol/L (3.5-5.1)
--- NOTE | 2018-03-09 07:18 | NUR ---
PATIENT STABLE ON BIPAP THROUGHOUT SHIFT. ELEVATED POTASSIUM REPORTED TO DR. PANCHAL, EKG PERFORMED. INSULIN SUBQ ADMINISTERED. Q2 TURNS FOR SKIN INTEGRITY.
--- NOTE | 2018-03-09 07:22 | NUR ---
ABG RESULTS READ TO DR RICK, NO NEW ORDERS.
[2018-03-09 10:49] LABS: ANION GAP < 0 mmol/L (7-16); BUN 73 mg/dL (7-18); CALCIUM 9.9 mg/dL (8.5-10.1); CHLORIDE 95 mmol/L (98-107); CO2 35 mmol/L (21-32); CREATININE 2.1 mg/dL (0.6-1.3); GLUCOSE 75 mg/dL (70-99); SODIUM 129 mmol/L (136-145)
--- NOTE | 2018-03-09 12:13 | EKG ---
[place] [address] ELECTROCARDIOGRAM REPORT Name: DENIZ LÓPEZ Room: [address] ADM IN ..#: [id number] Admission: 03/08/18 Attend Phys: Enrique Philip MD Discharge: Date of : 48 Report #: [id number] THIS REPORT FOR: //name// [facility] ED Test Date: 2018-03-08 Test Time: 14:13:04 Pat Name: DENIZ LÓPEZ Department: Room: [facility] Gender: F Telegraph Office Manager: LALITO : 1950 Requested By: Yousif Jay Order Number: [id number] MD: Lloyd Christiansen Measurements Intervals [place] Rate: 96 P: WI: QRS: 94 QRSD: 185 T: 11 QT: 443 QTc: 560 Interpretive Statements Atrial flutter RBBB and LPFB Compared to ECG 02/07/2018 16:54:03 no change Electronically Signed On 03-09-2018 12:13:13 FOUR SLIDE MACHINE SETTER by Lloyd Christiansen [email or web address] <ELECTRONICALLY SIGNED> By: Lloyd Christiansen MD, [facility] 03/09/18 1213 1413 1413 Lloyd Christiansen MD, FAC /EPI
--- NOTE | 2018-03-09 12:19 | EKG ---
[place] [address] ELECTROCARDIOGRAM REPORT Name: DENIZ LÓPEZ Room: [address] ADM IN M.R.#: [id number] Admission: 03/08/18 Attend Phys: nErique Philip MD Discharge: Date of : 48 Report #: [id number] THIS REPORT FOR: //name// [facility] Test Date: 2018-03-09 Test Time: 06:36:52 Pat Name: DENIZ LÓPEZ Department: Room: [address] Gender: F Hr Associate: [id number] : 1950 Requested By: Enrique Philip Order Number: [id number] Reading MD: Lloyd Christiansen Measurements Intervals [place] Rate: 96 P: IN: QRS: 105 QRSD: 119 T: 63 QT: 375 QTc: 474 Interpretive Statements Atrial fibrillation Incomplete right bundle branch block Low voltage, precordial leads Baseline wander in lead(s) V2 Compared to ECG 02/07/2018 16:54:03 Atrial flutter no longer present Electronically Signed On 03-09-2018 12:19:14 REGIONAL PRODUCTION MANAGER by Lloyd Christiansen [email or web address] <ELECTRONICALLY SIGNED> By: Lloyd Christiansen MD, FAC 03/09/18 1219 0636 0636 Lloyd Christiansen MD, [facility] /EPI
[2018-03-09 14:14] LABS: BE 6.5 mmol/L (-2 to +3); PO2 81.9 mmHg (75.0-100.0); pH 7.381 (7.340-7.450)
[2018-03-09 15:41] LABS: CREATININE 2.1 mg/dL (0.6-1.3)
--- NOTE | 2018-03-09 18:24 | NUR ---
PT ASSESSMENT CHARTED. VSS THROUGHOUT SHIFT. PATIENT STRICTLY NPO BIPAP IS REQUIRED TO KEEP OXYGEN UP. Q2H TURNS TO MAINTAIN SKIN INTEGRITY. PT DOES NOT APPEAR TO BE IN ANY PAIN. PT DOES NOT REQUIRE INSULIN AND ACTUALLY HAD A BLOOD GLUCOSE LEVEL OF 63 REQUIRING A BOLUS OF D10. PRECEDEX STARTED AND PATIENT IS CURRENTLY AROUSABLE WITH MOVEMENT AND ANSWERING SIMPLE QUESTIONS AND FOLLOWS SIMPLE COMMANDS. SHE REMAINS COMFORTABLE AND HASN'T GRABBED FOR THE MASK OR APPEARED ANXIOUS UNLESS FAMILY IS STIMULATING HER.
[2018-03-10] VITALS (40 sets, daily range): BP systolic 97–124; BP diastolic 46–91
[2018-03-10 04:42] LABS: CALCIUM 9.8 mg/dL (8.5-10.1); CREATININE 1.7 mg/dL (0.6-1.3); POTASSIUM 4.5 mmol/L (3.5-5.1)
--- NOTE | 2018-03-10 05:42 | NUR ---
VITALS STABLE THROUGHOUT SHIFT. PATIENT AROUSABLE AND RESPONDS TO SIMPLE COMMANDS ON 0.6 OF PRECEDEX. ABLE TO REMOVE BIPAP TO SWAB MOUTH WITH NO OXYGEN DESATURATIONS. PATIENT COUGHED UP MEDIUM SIZED, YELLOW SPUTUM WITH GOOD EFFORT DURING THIS TIME. PATIENT SEEMS MORE COMFORTABLE THIS SHIFT, ATTEMPTED TO TAKE BIPAP OFF ONCE THROUGHOUT THE NIGHT, WAS ABLE TO UNDERSTAND SHE NEEDS TO LEAVE BIPAP ON FACE, STILL ANXIOUS FROM TIME TO TIME. Q2 TURNS FOR SKIN INTEGRITY. CALL LIGHT WITHIN REACH.
--- NOTE | 2018-03-10 07:37 | CON ---
[address] [address] CONSULTATION Name: LÓPEZDENIZ Romero Room: [address] IN M.R.#: [id number] Admission: 03/08/18 Attend Phys: Enrique Philip MD Discharge: Date of : 48 Report #: [id number] THIS REPORT FOR: //name// CC: Linda Philip DATE OF SERVICE: 03/09/2018 INFECTIOUS DISEASE CONSULTATION ATTENDING PHYSICIAN: Enrique Philip M.D. REASON FOR EVALUATION: Severe pneumonitis, complicated by respiratory failure and encephalopathy. HISTORY OF PRESENT ILLNESS: The patient with underlying O2-requiring COPD and recent admission with severe illness, including lower extremity inflammatory eruptions. She is unable to give details of the history from the ER visit. She presented with complaints of progressive shortness of breath within the 24 hours prior to admission, congestion, associated anxiety with encephalopathy and was found to have hypoxemia with saturations in the low 80s in spite of being on supplemental oxygen at 4 liters. She is typically on 2 liters. It is not clear if she has had fevers. Due to her worsening clinical status, she was intubated and now is on mechanical ventilatory support. Hemodynamically, she has been mildly labile with systolic pressures in the 90s-100s range. Chest x-ray showed ongoing issues of bibasilar infiltrates and left thoracic mass. Of note, it was biopsied previously and was otherwise nondiagnostic. Lactic acid 1.5. Urinalysis greater than 25 white cells, greater than 30 bacteria. Blood cultures are sterile thus far. Creatinine was elevated at 2.2 and potassium was 6.3. She was started empirically on piperacillin and tazobactam and then switched to cefepime as well as vancomycin. ALLERGIES: LISTED TO PENICILLINS, STATINS AND CODEINE. MEDICATIONS: Current medicines include pantoprazole, cefepime, apixaban, vancomycin, insulin, albuterol, ipratropium inhalers, methylprednisolone, quetiapine, diltiazem CD, amiodarone, cholecalciferol, levofloxacin and levothyroxine. PAST MEDICAL HISTORY: As described above, history of diabetes mellitus, history of hypertension, O2-requiring COPD, atrial fibrillation, asthma, chronic hypoxic respiratory failure, chronic venous stasis insufficiency with associated dermatitis and morbid obesity. SOCIAL HISTORY: Former [place] [address] CONSULTATION Name: MARIBELDENIZ Jasso Room: [address]#: [id number] Admission: 03/08/18 Attend Phys: Enrique Philip MD Discharge: Date of : 48 Report #: [id number] FAMILY HISTORY: Noncontributory. REVIEW OF SYSTEMS: Not obtainable. PHYSICAL EXAMINATION: GENERAL: She is clearly ill. She is intubated. She is nonresponsive at this point, undernourished. VITAL SIGNS: Temperature 97.5, pulse 101, respirations 27 and blood pressure 112/59. SKIN: Warm, dry. There are no particular rashes. HEENT: Remarkable for the endotracheal tube, gastric tube. NECK: Appears to be supple. LUNGS: Coarse breath sounds bilaterally. HEART: Irregular. Borderline tachycardic. I do not appreciate a murmur. ABDOMEN: Soft. There are no peritoneal signs. EXTREMITIES: Distal lower extremities have an erythrodermic-type eruption to below the knee. I think it is more consistent with venous stasis insufficiency, dermatitis. There are no bullous lesions, no ulcers at this point. There is some desquamation distally. GENITOURINARY: Deferred. RECTAL: Deferred. LABORATORY DATA: Blood cultures sterile thus far. CBC: White count of 9.7, H and H 11.9 and 37.4 and platelets of 329,000. Electrolytes: Sodium 126, potassium 5.8, chloride 90, bicarbonate of 37, BUN and creatinine 60 and 1.9, glucose 159 and calcium elevated at 10.2. LFTs unremarkable. Albumin of 3.0. Total protein 7.9. Estimated GFR of 26. ABGs: pH of 7.146, pCO2 of 98.9 and pO2 of 103.9 with an FiO2 of 60%. ASSESSMENT: Pneumonitis, complicated by respiratory failure, likely has a complicated urinary tract infection as well in the setting of severe underlying lung disease. PLAN: We will continue broad-spectrum antimicrobial therapy at this point. We will await pending study results and attempt efforts to wean off support; I think it is likely this will be difficult. At this point I understand she is a full code. We will see how she does clinically over the next 48-72 hours. <ELECTRONICALLY SIGNED> By: Rakesh Frias MD 03/10/18 0737 [id number] Frias MD /nt
[2018-03-10 08:43] LABS: BE 5.7 mmol/L (-2 to +3); PO2 82.2 mmHg (75.0-100.0); pH 7.361 (7.340-7.450)
[2018-03-10 08:44] LABS: PCO2 58.9 mmHg (35.0-45.0)
--- NOTE | 2018-03-10 09:37 | CON ---
[address] [address] CONSULTATION Name: DENIZ LÓPEZ Room: [address] IN M.R.#: [id number] Admission: 03/08/18 Attend Phys: Enrique Philip MD Discharge: Date of : 48 Report #: [id number] THIS REPORT FOR: //name// CC: Linda Philip HISTORY OF PRESENT ILLNESS: This is a 67-year-old female patient who is known to our service. She was discharged from this facility in early 02/2017. She was hospitalized at that time with acute respiratory failure and cellulitis. Also, during the hospitalization, she was found to have large left upper lobe lung mass. She underwent a biopsy of the mass at that time. The report of the biopsy showed abundant necrotic tissue, suggestive but not diagnostic of squamous cell carcinoma and she is supposed to have outpatient followup with the Oncology. She was treated for COPD and fluid overloaded in addition to cellulitis. The patient is known to have extreme anxiety and we had difficulty getting CT bacuase she does not tolerate laying down and have the biopsy done during the last visit. She presented to the hospital and admitted on 03/08/2018 from SNF facility for pneumonia. Apparently, she received 5 days azithmycin of Rocephin , and she continued to have desaturation. It was reported that her O2 saturation was in the 80s when she was on 4 liters oxygen. She was in respiratory distress and initially she refused the BiPAP and ABGs. Suspected that she has hypercapnic respiratory failure. When she arrived to the ICU, she was obtunded and BiPAP was placed. She has multiple ABGs done that will be discussed below. When I saw her this morning, she had received Ativan to relieve some anxiety and allow her to use the BiPAP. She was shaking her head to my question, although did not open her eyes, did not follow commands. She seems to be tolerating the BiPAP well. REVIEW OF SYSTEMS: Unobtainable due to the patient's condition. ALLERGIES: STATIN, PENICILLIN AND CODEINE. HOME MEDICATIONS: She was on Xopenex, Lasix, pantoprazole, insulin and she was on prednisone 20 mg p.o. daily, levothyroxine, Zetia, Tylenol, Eliquis. PAST MEDICAL HISTORY: Hypertension, diabetes mellitus, COPD, atrial fibrillation, chronic respiratory failure, home oxygen, chronic venous stasis, morbid obesity, lung mass as mentioned above. SOCIAL HISTORY: Ex-smoker, does not smoke anymore. Resident of a rehab facility for recent hospitalization. PHYSICAL EXAMINATION: GENERAL: She was on BiPAP, O2 saturation 97%, blood pressure of 94/55, breathing 22 times a minute, pulse rate of 93, temperature 36.4. HEENT: Head: Normocephalic, atraumatic. Pupils are reactive to light. External ear looks healthy and normal. She is on BiPAP mask. [place] [address] CONSULTATION Name: DENIZ LÓPEZ Room: [address]#: [id number] Admission: 03/08/18 Attend Phys: Enrique Philip MD Discharge: Date of : 48 Report #: [id number] oral airways. NECK: Thick. CHEST: Diminished air movement bilaterally with crackles, rhonchi and end-expiratory wheeze. HEART: S1, S2, AFib. ABDOMEN: Obese, soft, lax, nontender, no masses felt. EXTREMITIES: Lower extremity edema noted. PSYCHIATRIC: Mood and affect could not be evaluated. Somnolence. SKIN: Chronic lower extremity changes. LABORATORY DATA: Her chest x-ray upon hospitalization showed bilateral infiltrate with pleural effusion. Her chest x-rays this morning were stable. Her white blood count 9.7, hemoglobin 11.9 and platelets of 329. She had multiple sets of ABGs. Initial ABG, 7.14/98/103 that was initially on BiPAP. Repeat this morning was 7.24/74/99. This was on 50% FiO2. Her INR is 1. Her sodium is 128, chloride of 93, potassium 6.3, creatinine of 2.2, her baseline is around 1.7, 1.6. Phosphorus 5.9. BNP was elevated. IMPRESSION: 1. Eefxy-rg-jhdinau hypoxic and hypercapnic respiratory failure. 2. Pulmonary infiltrate. 3. Pneumonia. 4. Chronic obstructive pulmonary disease exacerbation. 5. Diastolic heart failure. 6. Fluid overload. 7. Atrial fibrillation. 8. Anticoagulation for atrial fibrillation. 9. Diabetes mellitus. 10. Lung mass. The patient currently is in the ICU. She remains off vasopressors. She received IV fluids. We need to monitor her fluid status closely given the history of heart failure. Her Lasix is on hold. Continue BiPAP for now; however, I did not have family at the bedside. We will try to reach out for them to clarify the code status. As of now, she is protecting the airways, but we need to keep low threshold for intubation if aggressive care is desired. She is on antibiotics, cefepime, vancomycin and Levaquin. Continue steroids, scheduled nebulization treatment and monitor ABGs and chest x-ray.Once mental status better will discuss furthe work up of lung mass She is on anticoagulation. Unlikely this is thromboembolic phenomena. I would agree with n.p.o. status until fully awake. [address] [address] CONSULTATION Name: DENIZ LÓPEZ Room: [address] IN .R.#: [id number] Admission: 03/08/18 Attend Phys: Enrique Philip MD Discharge: Date of : 48 Report #: [id number] Critical care time 35 minutes. <ELECTRONICALLY SIGNED> By: Gary Oliveira MD 03/10/18 0937 [id number] Oliveira MD /nt
--- NOTE | 2018-03-10 09:38 | NUR ---
PRECEDEX TITRATE DOWN. PT ON HI FLOW NC AT 6L NC. SATTING AT 98%.
--- NOTE | 2018-03-10 09:59 | CON ---
[address] [address] CONSULTATION Name: DENIZ LÓPEZ Romero Room: [address] IN .R.#: [id number] Admission: 03/08/18 Attend Phys: Enrique Philip MD Discharge: Date of : 48 Report #: [id number] THIS REPORT FOR: //name// CC: Linda Philip DATE OF SERVICE: 03/09/2018 CONSULTING PHYSICIAN: Enrique Philip MD REASON FOR NEPHROLOGY CONSULTATION: Chronic kidney disease stage 4 with a mild acute kidney injury and hyperkalemia. REASON FOR ADMISSION: Shortness of breath. HISTORY OF PRESENT ILLNESS: This is a 67-year-old female who was sent over from her long term facility due to failed outpatient treatment for pneumonia. She has past medical history of chronic kidney disease stage 3-4. Baseline creatinine runs 1.9-2. She also has a history of chronic diastolic congestive heart failure with ejection fraction around 60% back in January of last year, atrial fibrillation. She has a history of COPD, diabetes mellitus, morbid obesity, left lung mass which was recently discovered. As an outpatient, she was being treated for pneumonia with 5 days of Rocephin and azithromycin and also received a dose of Levaquin, but her symptoms are not getting better and she was also having severe anxiety. When she was brought to the hospital, she was found to be severely hypercapnic. So far, her hypercapnia slowly improving with BIPAP, but there is a chance that she might get intubated to help further with that because she is still quite anxious and not quite awake. Her creatinine was 1.9 yesterday and 2.2 today. She has been a bit hypotensive. At long term facility, she does take Lasix and also potassium supplementation. Her potassium was 5.8 when she came in and 6.3 this morning. Her Peterson catheter was placed last night and she did make 900 mL of urine overnight. Currently, she was not able to get up and provide me review of systems. Her chest x-ray shows evidence of a large left mass which apparently was recently discovered, but the patient refused a biopsy or refused further treatment for that. Chest x-ray also revealed bilateral infiltrates that she has been started on antibiotics for treatment of pus for continuing pneumonia. I am not sure if she is taking any NSAIDs at long term facility. No MU inhibitor or ARB has been documented. ALLERGIES: PENICILLINS AND STATINS AND CODEINE. REVIEW OF SYSTEMS: Limited because of her anxiety and she is not waking up much for me and she is quite drowsy, so 10-point review of systems could not be completed. She is short of breath and she has [place] [address] CONSULTATION Name: DENIZ LÓPEZ Room: [address] IN .R.#: [id number] Admission: 03/08/18 Attend Phys: Enrique Philip MD Discharge: Date of : 48 Report #: [id number] HOME MEDICATIONS: Include levalbuterol, Lasix 80 mg once a day, MiraLax, pantoprazole, Lantus, lispro, prednisone, insulin, Zetia, levothyroxine, DuoNeb, fluticasone, potassium chloride 20 mEq once a day, cholecalciferol, acetaminophen, amiodarone, apixaban, diltiazem. PAST MEDICAL AND SURGICAL HISTORY: Includes hypertension, diabetes mellitus, COPD, AFib, asthma, chronic hypoxic respiratory failure, chronic venous stasis and morbid obesity. Chronic kidney disease stage 4, baseline creatinine 1.9-2, likely because of her diabetes and hypertension, not sure if she is following up with a lobby attendant or not. FAMILY HISTORY: Could not be reviewed with the patient. SOCIAL HISTORY: Former smoker as per her chart and no recreational drug use or alcohol use reported. PHYSICAL EXAMINATION: VITAL SIGNS: Blood pressure is 94/55, temperature 36.4, pulse was 93, respiratory rate was 27. She is 97% on 6 liters of oxygen, BiPAP. GENERAL: She is quite drowsy and when I tried to wake her up, she had a lot of anxiety and she did not wake up for me. She is on BiPAP. HEAD, EYES, EARS, NOSE, THROAT: Mucous membranes are dry, but she is also using a BiPAP currently. NECK: There is no JVD. CHEST: Bilaterally diminished breath sounds, more so on the left side. No crackles heard. CARDIOVASCULAR: S1, S2 normal. No murmurs or rubs. ABDOMEN: Soft, nondistended, nontender, obese and bowel sounds are diminished. EXTREMITIES: There is no lower extremity edema, chronic venous stasis changes and she has erythema of bilateral lower extremities and wrinkling of the skin present. NEUROLOGICAL FUNCTION: Difficult to assess. She is quite drowsy. PSYCHIATRIC: Cannot assess right now. LABORATORY DATA: Hemoglobin 11.1, WBC 7.9. Sodium is 128, potassium is 6.3, chloride is 93, CO2 is 36, BUN is 69 and creatinine is 2.2. CPK was 28 and other labs are reviewed. Blood gas was 7.249, pCO2 of 74.6, pO2 of 99 and HCO3 of 31 on that. IMAGING: Chest x-ray was reviewed. ASSESSMENT: 1. Acute kidney injury on chronic kidney disease stage 3-4. The patient has mild acute kidney injury. Her baseline creatinine is 1.9-2 and creatinine 2.2 today, 03/09/2018. UA shows evidence of possible urinary tract infection with more than 30 bacteria, more than 25 wbc's, 11-20 rbc's [place] [address] CONSULTATION Name: DENIZ LÓPEZ Room: [address] IN [facility]#: [id number] Admission: 03/08/18 Attend Phys: Enrique Philip MD Discharge: Date of : 48 Report #: [id number] Urine culture is pending. UA should be repeated once her acute kidney injury gets better and if it does not get better, we will be repeating a UA in a few days again. Renal ultrasound is pending. Chronic kidney disease stage 3-4 due to diabetes and hypertension. 2. Acute respiratory failure, combination of chronic obstructive pulmonary disease, anxiety as well as pneumonia and left lung mass. Antibiotics as per primary. She is currently getting vancomycin and cefepime. 3. Hyponatremia in the setting of renal insufficiency. 4. Mefyr-oy-rwxrawn respiratory acidosis with appropriate metabolic alkalosis. 5. Hyperkalemia in the setting of renal insufficiency and potassium supplementation. 6. Diabetes type 2. 7. Chronic atrial fibrillation. PLAN: 1. She is clinically looking dry, IV fluids will be started and increased from the current ordered rate of 50 mL an hour to 100 mL an hour and one dose of Lasix 40 mg IV will be given to help with kaliuresis and potassium will be repeated again at 10:00 a.m. This was all discussed with the patient's nurse. 2. There is no acute need for dialysis, but we may have to consider if potassium does not come down. 3. Creatinine a little bit above baseline. We will check a renal ultrasound. We will be checking serum immunofixation studies and serum kappa to lambda light chain ratio as well. 4. Try to maintain a mean arterial pressure of 65-70. 5. Adjust the antibiotics to GFR of less than 30 mL per minute for now. Thank you for this consultation. Overall, prognosis looks very poor. I did spend more than 35 minutes in the patient's critical care. This time was spent in reviewing the patient's records and writing orders and examining the patient and discussion with the patient's nurse and we will continue to follow along with you. <ELECTRONICALLY SIGNED> By: Judith Jaime MD 03/10/18 0959 [id number] 1946Arandolph Jaime MD /nt
--- NOTE | 2018-03-10 10:02 | NUR ---
PER KYM FLOR FOR PT TO REMAIN ON PRECEDEX WHILE ON NC. PT CURRENTLY AT 0.3 MCK/KG/H OR PRECEDEX.
--- NOTE | 2018-03-10 10:04 | NUR ---
PT IN [place] FROM HOME. PT REFUSES TO PUT ON HOSPITAL GOWN.
[2018-03-10 10:08] LABS: KAPPA FREE LIGHT CHAINS 66.8 mg/L (3.3-19.4); LAMBDA FREE LIGHT CHAINS 26.1 mg/L (5.7-26.3)
--- NOTE | 2018-03-10 11:01 | NUR ---
PT.RESTING IN BED ON O2 AT 6 L/HFC. PER NURSING PT.IS VERY ANXIOUS. IS OFF BIPAP BUT CONTINUES ON PRECEDEX FOR ANXIETY. CM DID NOT SPEAK WITH PT. NO FAMILY HERE AT THIS TIME. REVIEW OF CHART SHOWS PT.CAME FROM SNF AT [facility]. LEFT MESSAGE FOR CYNDI AT [facility] TO SEE IF THEY WILL ACCEPT PT.BACK AT DISCHARGE TO A SKILLED BED THERE.
[2018-03-10 11:09] LABS: IgA 322 mg/dL (87-352); IgG 1194 mg/dL (700-1600); IgM 63 mg/dL (26-217)
--- NOTE | 2018-03-10 11:14 | NUR ---
BIPAP OFF FROM [id number]. PT SLEEPING AND BIPAP PLACED BACK ON. PER PULMONARY BIPAP ON WHEN PT SLEEING, IN DISTRESS AND AT NIGHT.
--- NOTE | 2018-03-10 16:06 | NUR ---
WOUND CARE NOTE: CONSULT RECEIVED FOR WOUND TO LOWER EXTREMITY. PATIENT WITH CHRONIC SKIN CHANGES TO BILATERAL LOWER EXTREMITIES, RED, EDEMATOUS. APPEARS THAT PATIENT HAS A HEALING WOUND TO THE LEFT LATERAL LEG, NEW FRIABLE EPITHELIUM COVERING WOUND BED. NO DRAINAGE NOTED. PATIENTS LEGS ARE ELEVATED ON PILLOWS OFFLOADING HEELS. FAINT PALPABLE PEDAL PULSES. REDNESS TO BILATERAL GAITER AREA IS NOT HOT TO TOUCH, BELIEVE CHRONIC SKIN CHANGES. RIGHT CALF: 43.8 RIGHT ANKLE: 24 RIGHT INSTEP: 24 LEFT CALF: 44.5 LEFT ANKLE: 22.5 LEFT INSTEP: 24.2 RECOMMEND CONTINUE WITH LOWER EXTREMITY ELEVATION, WOULD RECOMMEND TUBIGRIPS ONCE UP AND MOVING AROUND MORE APPLY LOTION TO BILATERAL LEGS DAILY AND NEEDED
--- NOTE | 2018-03-10 16:25 | NUR ---
SPEECH SAW PT IN AM AND AT 1600. PER ST PT NEEDS TO REMAIN NPO AND AT SOME POINT WILL NEED A VIDEO SWALLOW.
--- NOTE | 2018-03-10 17:00 | NUR ---
I have reviewed the documentation by SONYA SAMAYOA from TODAY and I concur with it. GEORGETTE LEOS
[2018-03-11] VITALS (23 sets, daily range): BP systolic 94–135; BP diastolic 50–86
[2018-03-11 01:24] LABS: ABSOLUTE LYMPHOCYTES 0.8 thou/uL (0.8-5.3); ABSOLUTE MONOCYTES 0.1 thou/uL (0.0-1.2); ABSOLUTE NEUTROPHILS 4.3 thou/uL (1.6-8.1); BASOPHILS 0.1 %; HEMATOCRIT 36.6 % (37.0-47.0); HEMOGLOBIN 11.7 gm/dL (12.0-15.0); LYMPHOCYTES 15.3 %; MCH 30.9 pg (26.0-34.0); MCV 96.6 fL (80.0-100.0); MONOCYTES 2.7 %; MPV 7.5 fl. (7.2-11.1); NUCLEATED RBCS 0 /100WBC; PLATELET COUNT* 257 thou/uL (150-400); POLYS 81.9 %; RBC 3.79 mil/uL (4.20-5.00); RDW-CV 14.4 % (10.5-14.5); WBC 5.2 thou/uL (4.0-11.0)
[2018-03-11 01:36] LABS: CALCIUM 9.9 mg/dL (8.5-10.1); CREATININE 1.4 mg/dL (0.6-1.3); MAGNESIUM 2.4 mg/dL (1.8-2.4); POTASSIUM 4.2 mmol/L (3.5-5.1)
--- NOTE | 2018-03-11 05:45 | NUR ---
VITALS STABLE THROUGHOUT SHIFT. TEMPS RANGING BETWEEN 95.7-96.1 F AXILLARY. PATIENT SLEEPING IN BED THROUGH MOST OF THE NIGHT, MOANS AND GROANS OCCASSIONALLY. PRECEDEX UP TO 0.6 MCG/MG/H FOR COMFORT. PATIENT REQUESTED TO SIT IN BED X1, TOLERATED POSITION FOR ABOUT A COUPLE OF HOURS. ASKS TO WATCH TV. Q2 TURNS FOR SKIN INTEGRITY, CALL LIGHT WITHIN REACH.
--- NOTE | 2018-03-11 10:57 | NUR ---
Nutrition: Pt admitted with resp failure. On bipap, will try to wean off later, per ICU rounds. Pt very anxious. Wt 268#. NPO currently. Seen for high BMI. No nutriiton interventions needed at this time. Consider mild risk. GOAL: able to tolerate off bipap enough to eat. Will follow up 03/14/18.
--- NOTE | 2018-03-11 17:26 | NUR ---
PT CARE ASSUMED AFTER REPORT. ASSESSMENTS COMPLETE. AFIB ON MONITOR. BIPAP REMOVED THIS AM FOR TRIAL. PT DID NOT TOLERATE. O2 SAT DROPPED TO 80%. PLACED BACK ON BIPAP. PT WAS ALSO VERY ANXIOUS AND FRANTIC WHILE OFF THE BIPAP. PRESIDEX GTT INCREASED. FAMILY AT BEDSIDE THIS AM. NEELY TO DD. DENIES PAIN. SLOW TO PROGRESS TOWARDS GOALS.
[2018-03-12] VITALS (22 sets, daily range): BP systolic 88–145; BP diastolic 56–87
--- NOTE | 2018-03-12 01:01 | NUR ---
LENARD ROBERTS PLACED ON PATIENT AT THIS TIME DUE TO TEMPS 94.4*2 THIS SHIFT.
--- NOTE | 2018-03-12 06:27 | NUR ---
VITALS STABLE THROUGHOUT THE NIGHT. PATIENT MORE ANXIOUS THAN SHE HAS BEEN LAST NIGHT EVEN WITH 1MCG/KG/H OF PRECEDEX, ATIVAN*2 ADMINISTERED FOR COMFORT. TEMP 94.4 F X2, PLACED ON LENARD HUGGER AROUND 0030, TEMP UP TO 96.8F AT THIS TIME. BS 61 THIS AM, D50 ADMINISTERED. Q2 TURNS FOR SKIN INTEGRITY, CALL LIGHT WITHIN REACH.
--- NOTE | 2018-03-12 07:29 | NUR ---
ADMITTED PT FROM ER, PT ON NON REBREATHER WITH INCREASED WORK OF BREATHING, ALERT AND ORIENTED, DENIES PAIN, ABX GIVEN ORDERED.
--- NOTE | 2018-03-12 11:34 | NUR ---
PATIENT REMAINED OFF BIPAP FOR 50 MINUTES WITH MORNING MEDICATIONS GIVEN BEFORE SHE BECAME TACHYCARDIAC AND TACHYPNEIC. ON 6 LITERS AND SATING ABOVE 95% UNTIL THE LAST FEW MINUTES WHEN SHE DROPPED TO 90%
--- NOTE | 2018-03-12 15:30 | NUR ---
SPOKE WITH SON ALEX AND Ozzie-Yuliya DEVI AT BEDSIDE. PT HAS BEEN ABLE TO BE OFF BIPAP FOR SHORT PERIODS OF TIME TODAY. PT HAS BEEN AT [facility] FOR SNF SINCE HER DISCHARGE ON 02/19. FAMILY SAYS THEY HAVE BEEN VERY HAPPY WITH THE CARE AT [facility]. BRIEFLY DISCUSSED DISCHARGE OPTIONS WITH THEM, THEY WOULD LIKE PT TO RETURN TO [facility]. THEY HAVE TALKED WITH THE ONCOLOGIST AND WILL BE TALKING WITH HIM AGAIN-PT HAS A LUNG MASS, THE QUESTION IS HOW AGGRESSIVE DOES THE PT WANT TO BE WITH PURSUING DIAGNOSIS AND TREATMENT OF POSSIBLE CANCER. FAMILY DOESN'T THINK SHE WOULD AGREE TO CHEMO OR RADIATION BUT WILL WAIT AND SEE WHAT PT SAYS. ALEX IS PT'S DPOA. THEY ARE AWARE OF THE OPTION OF HOSPICE IN A [facility], IF THAT BECOMES AN OPTIONS. CALLED CYNDI AT [facility] TO UPDATE HER ON PT'S CONDITION. THEY CAN TAKE PT BACK FOR SNF, THEY CAN LOOK AT THE POSSIBILITY OF TAKING PT BACK TO A MEDICAID HALF-WAY CARE BED IF NEEDED. ALEX AND SHANDRA LIVE IN [place], PLAN ON GOING BACK HOME THE END OF THE WEEK. THEY HAVE THE PHONE # TO THE ICU AND MY PHONE NUMBER.
--- NOTE | 2018-03-12 19:43 | NUR ---
PATIENT HAS HAD 3 SEPERATE BREAKS ON THE BIPAP FOR ONE HOUR EACH AND TOLERATED WELL ON 6 LITERS NASAL CANULA. PATIENT IS AXOX4 BUT FORGETFUL AT TIMES. CONTINUES TO BE VERY ANXIOUS AND CONTINUES TO BE ON PRECEDEX GTT WELL. WILL CONTINUE TO WEAN DOWN. DR DORANTES SPOKE WITH FAMILY EXTENSIVELY TODAY ABOUT MASS IN LUNGS AND POSSIBLE OUTCOMES WITH EACH DIFFERENT DECISION THE PAT[facility]. FAMILY UNDERSTANDS THE PROGNOSIS AND WE WILL CONTINUE TO SEE HOW PATIENT DOES OVER THE NEXT FEW DAYS AND GO FROM THERE. INSULIN HELD THIS SHIFT DUE TO DROPPING BLOOD SUGARS, PATIENT DID EAT SOME BROTH AND JELLO FOR DINNER AND A LITTLE APPLESAUCE FOR LUNCH, SWALLOWING PRECAUTIONS IN PLACE BUT TOLERATES LIQUIDS WELL. NO PAIN AT THIS TIME, NO NAUSEA OR SHORTNESS OF AIR. BED IN LOWEST POSITION, CALL LIGHT IN REACH, CENTRAL OFFICE REPAIRER IN PLACE.
[2018-03-13] VITALS (20 sets, daily range): BP systolic 94–115; BP diastolic 55–72
[2018-03-13 04:09] LABS: ABSOLUTE LYMPHOCYTES 1.4 thou/uL (0.8-5.3); ABSOLUTE MONOCYTES 0.3 thou/uL (0.0-1.2); ABSOLUTE NEUTROPHILS 7.5 thou/uL (1.6-8.1); HEMATOCRIT 38.9 % (37.0-47.0); HEMOGLOBIN 12.2 gm/dL (12.0-15.0); MCH 30.8 pg (26.0-34.0); MCHC 31.4 g/dL (28.0-37.0); MCV 98.1 fL (80.0-100.0); MONOCYTES 3.1 %; MPV 7.8 fl. (7.2-11.1); NUCLEATED RBCS 0 /100WBC; PLATELET COUNT* 281 thou/uL (150-400); POLYS 81.9 %; RBC 3.96 mil/uL (4.20-5.00); RDW-CV 14.5 % (10.5-14.5); WBC 9.1 thou/uL (4.0-11.0)
[2018-03-13 04:23] LABS: CALCIUM 9.9 mg/dL (8.5-10.1); CREATININE 1.3 mg/dL (0.6-1.3); POTASSIUM 4.4 mmol/L (3.5-5.1)
--- NOTE | 2018-03-13 05:54 | NUR ---
patient not progressing towards goals. became extremely anxious overnight. wanting to remove bipap. placed on high flow for about 30min. as soon as bipap was placed pt wanted it off. was anxious and restless. recieved ativan to help with her anxiety. pt was able to rest and leave bipap on. pt insulin was held d/t low blood sugars. given one dose of dextrose to bring sugars up. pt body temp slowly coming up with bear hugger in place. new iv was started on left upper arm. oral swaps, turns/repositioning given. precedex gtt infusing. currently in bed sleeping. bed to lowest position. bear hugger in place. no voiced concerns at this time.
[2018-03-13 08:11] LABS: BE 6.2 mmol/L (-2 to +3); PO2 63.6 mmHg (75.0-100.0); pH 7.368 (7.340-7.450)
--- NOTE | 2018-03-13 16:39 | NUR ---
03/13 Days: Patient able to tolerate being off bi-pap for 2.5 hours this am. Ate 65% of her breakfast with full assist from nurse. Takes frequent drinks for dry mouth. Precedex weaned from 0.8 to 0.4, utilizing 1 mg of ativan every 4 hours to wean precedex. May need increase in either dose or frequency in order to wean off precedex completely.
--- NOTE | 2018-03-13 23:12 | NUR ---
PT. PLACED ON BIPAP AT [id number]
--- NOTE | 2018-03-13 23:54 | NUR ---
PRECEDEX GTT TURNED OFF AT THIS TIME
[2018-03-14] VITALS (7 sets, daily range): BP systolic 106–117; BP diastolic 66–77
--- NOTE | 2018-03-14 05:30 | NUR ---
PT. PLACED BACK ON BIPAP AT 0500, COULD NOT MAINTAIN O2 SAT > 90% ON 15L [place] N/C.
--- NOTE | 2018-03-14 05:50 | NUR ---
PT. NOT PROGRESSING TOWARDS GOALS. UNABLE TO MAINTAIN OXYGEN SATURATION > 90% WHEN OFF BIPAP. NOT ORIENTED TO TIME. CONSTANTLY YELLING FOR HELP THROUGHOUT SHIFT. WILL CONTINUE TO MONITOR.
--- NOTE | 2018-03-14 10:41 | NUR ---
Nutrition: Follow up note. Consult received for "wound." RD ordered Jose b.i.d. for added nutrition. Pt is drinking fluids, but does not tolerate off bipap long. ?Hospice. Fluid overload, albumin 3. Wt 265#. Will continue to follow per protocol, 03/19/18.
--- NOTE | 2018-03-14 14:00 | NUR ---
FAMILY MEETING WITH SON, [id number], DR. DEE, NURSE, AND MYSELF TO DISCUSS PLAN OF CARE. AFTER LENGTHY DISCUSSION WITH SON, SON WANTS PT TO BE A DNR. DR DEE DISCUSSED OPTION OF CONTINUING SAME CARE FOR LONGER VS COMFORT MEASURES AND WHAT THAT WOULD BE. FOR NOW SON WANTS CARE CONTINUED, CONTINUE BIPAP. HE WILL TALK WITH OTHER FAMILY MEMBERS, THEY MAY WANT TO MAKE PT COMFORT MEASURES SOON, BUT HE ISN'T READY YET. SON IS DPOA, HOWEVER THE PAPERWORK IS AT HIS HOUSE IN [place] WITH NO WAY TO OBTAIN IT.
--- NOTE | 2018-03-14 14:08 | NUR ---
PATIENT OFF BIPAP FOR BREAKFAST. WAS ALERT THIS AM. DR DEE AND AUGIE COHEN HAD CONFERENCE WITH FAMILY. PT NOW DNR.
--- NOTE | 2018-03-14 19:00 | NUR ---
PATIENT NOW DNR FAMILY AT BEDSIDE AWAITING ROOM ON TELE. ALTERNATING CANNULA AND BIPAP.
--- NOTE | 2018-03-14 20:17 | NUR ---
PT RESTLESS, ANXIOUS, ATTEMPTING TO PULL OFF BIPAP MASK. SON, DAUGHTER IN LAW, AND OTHER FAMILY MEMBERS AT BEDSIDE, EMOTIONAL SUPPOROT PROVIDED. ATIVAN 1MG IVP GIVEN FOR INCREASED RESTLESSNESS, ANXIETY, FAMILY REQUEST. FAMILY CONCERNED PT CONTINUES WITH INCREASED AXIETY/CONFUSION, PULLING APART BIPAP MASK. REQUESTING DR BE NOTIFIED INCREASED RESLTESSNESS AND DISCOMFORT, REQUESTING MORPHINE. SPOKE WITH DR DEE VIA TELEPHONE, UPDATED PT STATUS AND FAMILY REQUEST. SAO2 95% ON BIPAP FIO2 40% AT PRESENT TIME. NEW ORDERS RECEIVED FOR MORPHINE 1MG IVP Q1HOUR PRN. WILL COMMUNICATE NEW ORDERS WITH PT AND FAMILY, INITATE ORDERED AND CONTINUE TO MONITOR.
--- NOTE | 2018-03-14 21:18 | NUR ---
PT TRANFERED TO ROOM 204 BY TELE STAFF AND RT, BIPAP ON AT TIME OF TRANSFER, ALL BELONGINGS SENT WITH PT, FAMILY UPDATED ON ROOM CHANGE.
--- NOTE | 2018-03-14 22:00 | NUR ---
PT TRANSFERRED FROM ICU TO TELEMETRY ROOM 204 AT APPROXIMATELY 2115. PT CURRENTLY ON BIPAP, RESTLESS AND MOANING. REFER TO COMPUTER CHARTING FOR FURTHER DETAILS. TRACING SR-ST WITH PAC'S ON MONITOR. HOURLY ROUNDING FOR PT SAFETY. FAMILY AT BEDSIDE. CLWR.
[2018-03-15] VITALS (7 sets, daily range): BP systolic 88–121; BP diastolic 46–68
[2018-03-15 05:29] LABS: ALBUMIN 2.3 g/dL (3.4-5.0); CALCIUM 10.8 mg/dL (8.5-10.1); CREATININE 1.8 mg/dL (0.6-1.3); POTASSIUM 4.5 mmol/L (3.5-5.1); TOTAL BILIRUBIN 0.3 mg/dL (<0.1-1.0)
[2018-03-15 06:22] LABS: BE -0.6 mmol/L (-2 to +3); PO2 71.8 mmHg (75.0-100.0)
[2018-03-15 06:26] LABS: PCO2 58.8 mmHg (35.0-45.0); pH 7.284 (7.340-7.450)
--- NOTE | 2018-03-15 09:30 | NUR ---
REC'D REPORT FROM NOC RN, ASSUMED CARE OF PT APPROX 0730. PT UNABLE TO ANSWER ORIENTATION QUESTIONS. PT ATTEMPTS TO COMMUNICATE BUT WORDS ARE MUMBLED AND INCOHERENT. PT OFF BIPAP AT TIME OF FIRST ENCOUNTER. VS OBTAINED. ASSESSMENT COMPLETED. EMT PARAMEDIC IN PLACE, ST. O2 SATS 95% ON 7L/MIN NC. RT TO ROOM FOR BREATHING TREATMENT AND WILL RETURN PT TO BIPAP. FAMILY IN ROOM AT THIS TIME. HOURLY ROUNDING FOR SAFETY AND PT NEEDS.
--- NOTE | 2018-03-15 10:30 | NUR ---
PT UNABLE TO TOLERATE WEDGES OR PILLOWS FOR REPOSITIONING. WHEN ATTEMPTING TO REPOSITION TO ONE SIDE, PT BECOMES RESTLESS AND IS UNABLE TO TOLERATE. WILL CONTINUE TO ATTEMPT REPOSITIONING PT TOLERATES.
--- NOTE | 2018-03-16 00:05 | NUR ---
PT ASSESSMENT COMPLETE AT START OF SHIFT. PT WAS RESTING COMFORTABLY WITH MAY FAMILY MEMBERS AT BEDSIDE AT THAT TIME. AFTER FAMILY LEFT PT BECAME AGITATED,PULLING AT BIPAP, AND MUMBLING INCOHERENT WORDS. PRN ATIVAN GIVEN WITH GOOD RESULTS FOR SEVERAL HOURS. MINIMAL OUTPUT FROM NEELY CATH. MOUTH CARE GIVEN AND PT REPOSITIONED. TRACING ST ON MONITOR. REFER TO COMPUTER CHARTING FOR FURTHER DETAIL. HOURLY ROUNDING FOR PT SAFETY, Q2 TURNS TO MAINTAIN SKIN INTEGRITY. CLWR.
--- NOTE | 2018-03-16 04:51 | NUR ---
PT HAS BEEN RESTLESS T/O THIS SHIFT. PRN ATIVAN AND MORPHINE GIVEN WITH PARTIAL SHORT TERM RESULTS. PT TAKEN OFF OF BIPAP FOR A "REST" , PUT ON 6LPM VIA NC, TOLERATING WELL. O2 SATS ADEQUATE.
--- NOTE | 2018-03-16 07:07 | NUR ---
PT PUT BACK ON BIPAP AT THIS TIME.
[2018-03-16 07:28] LABS: HEMOGLOBIN 13.2 gm/dL (12.0-15.0); MCH 30.6 pg (26.0-34.0); MCHC 30.8 g/dL (28.0-37.0); MCV 99.3 fL (80.0-100.0); MPV 8.8 fl. (7.2-11.1); NUCLEATED RBCS 0 /100WBC; PLATELET COUNT* 179 thou/uL (150-400); RBC 4.33 mil/uL (4.20-5.00); RDW-CV 15.4 % (10.5-14.5); WBC 23.2 thou/uL (4.0-11.0)
[2018-03-16 07:31] LABS: CALCIUM 11.4 mg/dL (8.5-10.1); CREATININE 2.7 mg/dL (0.6-1.3); POTASSIUM 4.9 mmol/L (3.5-5.1)
[2018-03-16 07:59] VITALS: BP 98/48
[2018-03-16 08:26] LABS: ABSOLUTE LYMPHOCYTES 2.6 thou/uL (0.8-5.3); ABSOLUTE MONOCYTES 1.4 thou/uL (0.0-1.2); ABSOLUTE NEUTROPHILS 19.3 thou/uL (1.6-8.1); METAMYELOCYTES 1 %
[2018-03-16 08:29] LABS: CLUMPED PLTS OCCASIONAL; PLATELET ESTIMATE ADEQUATE
[2018-03-16 08:31] LABS: MACROCYTES 2+; TARGET CELLS Occasional
[2018-03-16 08:32] LABS: TOXIC GRANULATION 1+
--- NOTE | 2018-03-16 09:30 | NUR ---
REC'D REPORT FROM NOC RN, ASSUMED CARE OF PT APPROX 0730. PT NONRESPONSIVE. BIPAP MASK IN PLACE, SETTINGS ORDERED. ASSESSMENT COMPLETE. VS OBTAINED. HOME HOUSEKEEPER IN PLACE, ST. O2 SAT 95% WITH BIPAP. FREQUENT CHECKS FOR SAFETY AND PT NEEDS.
[2018-03-16 12:00] VITALS: BP 86/46
[2018-03-16 19:05] VITALS: BP 105/54
--- NOTE | 2018-03-16 22:20 | NUR ---
PT ASSESSMENT COMPLETE AT START OF SHIFT. PT AGITATED, PRN MORPHINE GIVEN. ORAL CARE GIVEN AND PT REPOSITIONED. VSS. MINIMAL URINE OUTPUT. TRACING ST ON MONITOR. REFER TO COMPUTER CHARTING FOR DETAILS. HOURLY ROUNDING FOR SAFETY. Q2 TURNS FOR SKIN INTEGRITY. CLWR.
[2018-03-17] VITALS: BP 96/64
[2018-03-17 03:28] VITALS: BP 91/43
--- NOTE | 2018-03-17 05:12 | NUR ---
PT OFF OF BIPAP AT THIS TIME, ON 6LPM VIA NC, O2 SAT 93%. WILL MONITOR FOR TOLERATION.
[2018-03-17 05:57] VITALS: BP 98/45
[2018-03-17 08:00] VITALS: BP 112/58
--- NOTE | 2018-03-17 08:05 | NUR ---
ASSUMED PT CARE AT 0700, PT LYING IN BED, HOB ELEVATED, BIPAP IN PLACE, LINING SEWER TRACING SINUS TACHY WITH HR OF 110. PT IS MINIMALLY RESPONSIVE, ABLE TO OPEN EYES WHEN NAME IS CALLED BUT UNABLE TO VERBALIZE. UNABLE TO TOLERATE PO MEDS PER SCALLOP CUTTER D/T LOC. NEELY IS PATENT AND DRAINING DARK YELLOW, CONCENTRATED URINE. VSS, PT HAS PRN MORPHINE AND LORAZEPAM ON BOARD. WILL CONT TO MONITOR.
[2018-03-17 12:00] VITALS: BP 84/43
--- NOTE | 2018-03-17 14:05 | NUR ---
PER NURSING, PT. IS RECEIVING COMFORT CARE. NURSING STATES FAMILY IS COMING TO SIGN PAPERWORK AND PT. IS NOT APPROPRIATE FOR THERAPY. WILL DISCHARGE PT. FROM OT CASELOAD ONCE COMFORT CARE PAPERWORK IS ENTERED INTO COMPUTER.
--- NOTE | 2018-03-17 16:40 | NUR ---
Comfort care initiated. CM spoke with Pt's son and DIL, discussed option for GIP, son and DIL in agreement that they do not feel that GIP is necessary. Updated nurse.
--- NOTE | 2018-03-17 17:00 | NUR ---
FAMILY ON BOARD FOR COMFORT CARE MEASURES PT IS RAPIDLY DECLINING. NON RESPONSIVE, HYPOTENSIVE, BREATHING IS SHALLOW AND LABORED. MORPHINE AND ATIVAN GTT STARTED AT APPROX 1627, BOLUS OF EACH GIVEN PRIOR FOR COMFORT. BIPAP REMOVED, PT QUICKLY DECLINED AND PASSED, TOD 1650, FAMILY PRESENT, THIS MAXILLOFACIAL PATHOLOGY AND ANOTHER RN CALLED TOD. MTN NOTIFIED, FAMILY ON BOARD WITH TISSUE AND CORNEAL DONATION IF APPROPRIATE, ICE PLACED ON PATIENTS EYES. DR DEE AND CONSULTING PHYSICIANS CONTACTED, DR DEE TO SIGN CERTIFICATE. HOME CONTACTED AND NOTIFIED OF AND POSSIBLE TISSUE DONATION. HOSPITAL RN, TO NOTIFY HOME WHEN OK TO TRANSPORT BODY.
--- NOTE | 2018-04-02 10:42 | CON ---
[address] [address] CONSULTATION Name: DENIZ LÓPEZ Room: [address] IN M.R.#: [id number] Admission: 03/08/18 Attend Phys: Enrique Philip MD Discharge: 03/17/18 Date of : 48 Report #: [id number] THIS REPORT FOR: //name// CC: Linda Philip Oncology Consult Note PRIMARY CARE PHYSICIAN: Mary Jo Cifuentes DO HISTORY OF PRESENT ILLNESS: The patient is being seen in consultation at the request of the hospitalist and Dr. Oliveira for evaluation of possible lung cancer, based upon the finding of large lung mass found on CT scanning, associated with lung biopsy from 02/19/2018 suggested, but did not prove, squamous cell carcinoma. Today, information is put together, accumulated from review of records in the computer system, plus a call to Dr. Ewing, because the patient herself is completely unwilling to participate in the evaluation tonight, even with the entities of her nurse here in the intensive care unit. The patient has a history of severe COPD with near continuous or continuous oxygen dependence. There are some reports stating that she can only walk very limited distances. The patient has been approached about undergoing additional diagnostic procedures, and Dr. Ewing said he even went to see her on the day that she was supposed to have a repeat CT-guided lung mass biopsy, but she refused to proceed with that previously arranged procedure. PAST MEDICAL HISTORY: Significant for congestive heart failure, atrial fibrillation, atrial flutter, bilateral lower leg cellulitis, chronic kidney disease, COPD with intermittent exacerbations, diabetes mellitus, history of pneumonia, morbid obesity, right ovarian cyst. FAMILY HISTORY: Noncontributory. SOCIAL HISTORY: The patient is a former tobacco user. REVIEW OF SYSTEMS: Unobtainable tonight. PHYSICAL EXAMINATION: GENERAL: Reveals an obese lady lying nearly supine in the intensive care unit. Her eyes are closed. She is using a BiPAP device. She would not open her eyes when requested either by myself or by the nurse. I asked questions and the nurse asked questions and she did not respond. The patient had no resting tachypnea. HEENT: With her eyelids gently retracted, her pupils were found to be equal at 3 mm. The sclerae are nonicteric. Could not see inside her nasal nares, [place] [address] CONSULTATION Name: FLORENTINO LÓPEZNIE Romero Room: [address]#: [id number] Admission: 03/08/18 Attend Phys: Enrique Philip MD Discharge: 03/17/18 Date of : 48 Report #: [id number] would she open her mouth, so we could see inside her mouth. NECK: There was no lymphadenopathy in the cervical, clavicular, and axillary region. LUNGS: Colindres anteriorly revealed diminished air movement sounds. BREASTS: Not examined. HEART: Reveals normal rate and rhythm. ABDOMEN: Revealed massive obesity without masses or detectable hepatosplenomegaly. EXTREMITIES: Lower extremities reveal diffuse erythema below the knees with thickened skin indicative of chronic stasis changes. LABORATORY DATA: From 02/07/2018, I reviewed a note by Dr. Philip. The patient was found to have a left mediastinal versus lung mass and a stable right RML mass. From 02/17/2018, I reviewed procedure note from radiology regarding CT-guided left lung biopsy - indication mass. Anterior medial left upper lobe lung mass. Blood loss was less than 5 mL and was said to be successful. Surgical pathology report, identified by the path , as this has the diagnosis: Left lung mass. CT-guided biopsy: Scant fragments of keratin/parakeratotic material and predominantly abundant necrotic debris, suggestive but not diagnostic of squamous cell carcinoma. Case was reviewed with Dr. Mando Melissa and discussed with Dr. Ewing. Tonight, I spoke with Dr. Ewing who said that he was aware of the patient's situation and said that she was just extremely anxious about her condition. He spoke with her on the day that she was supposed to have a repeat biopsy of the lung mass, but she was unwilling to go through with it, saying that she needed to confer with family members from [place]. I was unable to get any cooperation from the patient nor would she give me any indication of response to my questions. I feel that it is not possible to proceed with any type of treatment without definitive diagnosis. <ELECTRONICALLY SIGNED> By: Reginaldo Thornton MD 04/02/18 [id number] Thornton MD /nt
== END 2018-03-17 16:50 | DRG 871 ==
LOC: M.ERS 14:04 → M.TBA-ER 15:12 → M.ICU 15:12 → M.TBA-ER 17:14 → M.ICU 18:41 → M.2W 03-14 21:25
PROVIDERS: Family Medicine; Internal Medicine; Internal Medicine Pulmonary Disease; ADMIT Family Medicine
PROC: 5A09457 Assistance with Respiratory Ventilation, 24-96 Consecutive Hours, Continuous Positive Airway Pressure (ICD-10-PCS; 2018-03-08)
PROC: 5A09457 Assistance with Respiratory Ventilation, 24-96 Consecutive Hours, Continuous Positive Airway Pressure (ICD-10-PCS; 2018-03-10)
PROC: 5A09357 Assistance with Respiratory Ventilation, Less than 24 Consecutive Hours, Continuous Positive Airway Pressure (ICD-10-PCS; principal; 2018-03-13)
PROC: 5A09357 Assistance with Respiratory Ventilation, Less than 24 Consecutive Hours, Continuous Positive Airway Pressure (ICD-10-PCS; 2018-03-14)
PROC: 5A09357 Assistance with Respiratory Ventilation, Less than 24 Consecutive Hours, Continuous Positive Airway Pressure (ICD-10-PCS; 2018-03-15)
PROC: 5A09357 Assistance with Respiratory Ventilation, Less than 24 Consecutive Hours, Continuous Positive Airway Pressure (ICD-10-PCS; 2018-03-16)
DX: A41.9 Sepsis, unspecified organism (principal); J96.21 Acute and chronic respiratory failure with hypoxia; J18.9 Pneumonia, unspecified organism; N17.0 Acute kidney failure with tubular necrosis; J96.22 Acute and chronic respiratory failure with hypercapnia; I50.32 Chronic diastolic (congestive) heart failure; E87.1 Hypo-osmolality and hyponatremia; N39.0 Urinary tract infection, site not specified; L03.116 Cellulitis of left lower limb; J98.11 Atelectasis; J44.1 Chronic obstructive pulmonary disease with (acute) exacerbation; N18.4 Chronic kidney disease, stage 4 (severe); I48.92 Unspecified atrial flutter; L03.115 Cellulitis of right lower limb; G93.40 Encephalopathy, unspecified; I13.0 Hypertensive heart and chronic kidney disease with heart failure and stage 1 through stage 4 chronic kidney disease, or unspecified chronic kidney disease; Z68.43 Body mass index [BMI] 50.0-59.9, adult; J44.0 Chronic obstructive pulmonary disease with (acute) lower respiratory infection; C34.90 Malignant neoplasm of unspecified part of unspecified bronchus or lung; E66.01 Morbid (severe) obesity due to excess calories; J45.909 Unspecified asthma, uncomplicated; E87.70 Fluid overload, unspecified; F41.9 Anxiety disorder, unspecified; E87.5 Hyperkalemia; I48.2 Chronic atrial fibrillation; E11.40 Type 2 diabetes mellitus with diabetic neuropathy, unspecified; T68.XXXA Hypothermia, initial encounter; Z66 Do not resuscitate; B96.20 Unspecified Escherichia coli [E. coli] as the cause of diseases classified elsewhere; Z88.6 Allergy status to analgesic agent; Z88.0 Allergy status to penicillin; Z87.891 Personal history of nicotine dependence; Z79.01 Long term (current) use of anticoagulants